=== PATIENT | female | born 1965 | race Caucasian/White ===

== ENCOUNTER 2018-10-05 17:42 | Emergency (ER) | payer BC ==
--- OUTSIDE RECORDS SUMMARY | 2018-10-05 17:45 | XMS REPORT | Continuity of Care Document ---
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 Medications Medication Details Route Status Patient Ordering Order Source Instructions Provider Date Allergies, Adverse Reactions, Alerts Substance Category Reaction Severity Reaction Status Date Comments Source type Reported Immunizations Immunization Date Given Site Status Last Updated Comments Source Results Order Results Value Reference Date Interpretation Comments Source Name Range Vital Signs Vital Sign Value Date Comments Source Encounters Location Location Encounter Encounter Reason Attending ADM DC Status Source Details Type Number For Provider Date Date Visit Procedures Procedure Code Date Perfomer Comments Source
[2018-10-05 19:13] LABS: Absolute Lymphocytes (CBC) 2.3 K/uL (0.7-4.9); Absolute Monocytes 0.5 K/uL (0.1-1.3); Absolute Neutrophil 5.1 K/uL (1.8-8.0); Basophils % 0.4 % (0-1.3); Eosinophils % 2.3 % (0-4.4); Hematocrit 43.9 % (36.0-45.0); Lymphocytes % 28.3 % (15.3-44.8); MPV 8.9 fL (7.6-11.3); Monocytes % 6.6 % (3.3-12.3); RBC Red Blood Cell Count 5.31 M/uL (3.86-4.86)
[2018-10-05 19:14] LABS: Protime INR 1.08
[2018-10-05 19:19] LABS: ALT/SGPT 37 U/L (12-78); AST/SGOT 18 U/L (15-37); Albumin 3.7 g/dL (3.4-5.0); Alkaline Phosphatase 89 U/L (45-117); BUN Blood Urea Nitrogen 13 mg/dL (7-18); Bicarbonate 31 mmol/L (21-32); Bilirubin Direct 0.1 mg/dL (0-0.2); Bilirubin Total 0.4 mg/dL (0.2-1.0); Glucose Level 96 mg/dL (74-106); Magnesium 2.4 mg/dL (1.8-2.4); NT PRO-BNP 59 pg/mL (<125); Potassium 3.7 mmol/L (3.5-5.1); Protein, Total 7.7 g/dL (6.4-8.2); Sodium Level 140 mmol/L (136-145); Troponin (Emerg Dept Use Only) < 0.02 ng/mL (0.0-0.045)
--- NOTE | 2018-10-05 19:26 | RAD REPORT ---
EXAM DESCRIPTION: RAD - Chest Single View - 10/05/2018 7:12 pm CLINICAL HISTORY: Palpitations, hypertension COMPARISON: None. TECHNIQUE: AP portable chest image was obtained 1906 hours . FINDINGS: Lungs are clear. Heart and vasculature are normal. No measurable pleural effusion and no p neumothorax. No acute bony abnormality seen. No acute aortic findings suspected. IMPRESSION: No acute cardiopulmonary process.
--- NOTE | 2018-10-05 20:32 | ER ---
Nurse's Notes [facility] Name: Chris Greer Age: 53 yrs Sex: Female : 1965 Arrival Date: 10/05/2018 Time: 17:46 Bed DIS1 Private MD: Diagnosis: Palpitations Presentation: 10/05 18:12 Presenting complaint: Patient states: Has recently started taking a new BP medication sg and it has been low, 3 days straight my BP has been extremely high, experienced Chest pain that felt like electricity shot through her chest, has been experiencing lightheaded and dizzy after she was instructed to stop taking the medication "cold turkey". Transition of care: patient was not received from another setting of care. Onset of symptoms was October 05, 2018. Risk Assessment: Do you want to hurt yourself or someone else? Patient reports no desire to harm self or others. Initial Sepsis Screen: Does the patient meet any 2 criteria? No. Patient's initial sepsis screen is negative. Does the patient have a suspected source of infection? No. Patient's initial sepsis screen is negative. Care prior to arrival: None. 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 - Social history:: Smoking status: Patient/guardian denies using tobacco. - Ebola Screening: : Patient negative for fever greater than or equal to 101.5 degrees Fahrenheit, and additional compatible Ebola Virus Disease symptoms Patient denies exposure to infectious person Patient denies travel to an Ebola-affected area in the 21 days before illness onset No symptoms or risks identified at this time. Screenin:54 Abuse screen: Denies threats or abuse. Denies injuries from another. Nutritional jl7 screening: No deficits noted. Tuberculosis screening: No symptoms or risk factors identified. Fall Risk IV access (20 points). Total White Fall Scale indicates No Risk (0-24 pts). Assessment: 18:54 General: Appears in no apparent distress. uncomfortable, Behavior is calm, cooperative, jl7 appropriate for age. Pain: Denies pain. Neuro: Level of Consciousness is awake, alert, obeys commands, Oriented to person, place, time, situation. Cardiovascular: Heart tones S1 S2 present Patient's skin is warm and dry. Respiratory: Airway is patent Respiratory effort is even, unlabored, Respiratory pattern is regular, symmetrical, Breath sounds are clear bilaterally. GI: No signs and/or symptoms were reported involving the gastrointestinal system. : No signs and/or symptoms were reported regarding the genitourinary system. EENT: No signs and/or symptoms were reported regarding the EENT system. Derm: Skin is pink, warm \\T\\ dry. Musculoskeletal: No signs and/or symptoms reported regarding the musculoskeletal system. 19:34 Reassessment: Patient appears in no apparent distress at this time. Patient and/or tl2 family updated on plan of care and expected duration. Pain level reassessed. Patient is alert, oriented x 3, equal unlabored respirations, skin warm/dry/pink. Awaiting further orders and lab results. 21:02 Reassessment: Patient appears in no apparent distress at this time. Patient and/or tl2 family updated on plan of care and expected duration. Pain level reassessed. Patient is alert, oriented x 3, equal unlabored respirations, skin warm/dry/pink. pt verbalized understanding of discharge instructions, need for follow up. Vital Signs: 18:15 BP 122 / 75; Pulse 72; Resp 17; Pulse Ox 99% on R/A; Weight 105.23 kg; Height 5 ft. 8 sg in. (172.72 cm); Pain 0/10; 20:51 BP 116 / 79; Pulse 73; Resp 18; Pulse Ox 99% on R/A; tl2 18:15 Body Mass Index 35.28 (105.23 kg, 172.72 cm) ED Course: 17:46 Patient arrived in ED. rg4 18:12 Arm band placed on. sg 18:14 Triage completed. sg 18:25 Gurmeet Ridley NP is PHCP. pm1 18:25 Flash Simmons MD is Attending Physician. pm1 18:54 Patient has correct armband on for positive identification. Placed in gown. Bed in low jl7 position. Call light in reach. Side rails up X 1. night time nanny on. Pulse ox on. NIBP on. Warm blanket given. 18:54 Initial lab(s) drawn, by me, sent to lab. Inserted saline lock: 22 gauge in left jl7 antecubital area, using aseptic technique. Blood collected. 19:13 XRAY Chest (1 view) In Process Unspecified. EDMS 21:01 Lay Reagan, RN is Primary Nurse. tl2 21:02 No provider procedures requiring assistance completed. IV discontinued, intact, tl2 bleeding controlled, No redness/swelling at site. Pressure dressing applied. Administered Medications: No medications were administered Outcome: 20:31 Discharge ordered by MD. pm1 21:02 Discharged to home ambulatory, with family. tl2 21:02 Condition: stable 21:02 Discharge instructions given to patient, Instructed on discharge instructions, follow up and referral plans. Demonstrated understanding of instructions, follow-up care. 21:04 Patient left the ED. tl2 Signatures: Dispatcher [employer] EDVA Shawn Whitlock RN RN sg Gurmeet Ridley, FUR FINISHER TAILOR FUR FINISHER TAILOR pm1 Lay Reagan RN RN tl2 Blanca Zarate rg4 Marin Harmon RN RN jl7
--- NOTE | 2018-10-05 20:32 | EDPHYS ---
Physician Documentation [facility] Name: Chris Greer Age: 53 yrs Sex: Female : 1965 Arrival Date: 10/05/2018 Time: 17:46 Bed DIS1 Private MD: ED Physician Flash Simmons HPI: 10/05 19:00 This 53 yrs old Female presents to ER via Ambulatory with complaints of pm1 Palpitations and chest pain. 19:00 The patient presents with a history of heart racing. Context: The symptoms occur at pm1 rest. Onset: The symptoms/episode began/occurred today. Duration: The patient or guardian reports a single episode, that is now resolved. Modifying factors: The symptoms are aggravated by nothing. The symptoms are alleviated by nothing. Associated signs and symptoms: Pertinent positives: one second electric-like chest pain across left breast to right breast, Pertinent negatives: cough, fever, nausea, SOB, syncope, near-syncope, vomiting. Severity of symptoms: in the emergency department the symptoms have resolved. The patient has not experienced similar symptoms in the past. 19:00 Stopped taking blood pressure medication for the past three days because it was making pm1 her blood pressure too low. 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 - Social history:: Smoking status: Patient/guardian denies using tobacco. - Ebola Screening: : Patient negative for fever greater than or equal to 101.5 degrees Fahrenheit, and additional compatible Ebola Virus Disease symptoms Patient denies exposure to infectious person Patient denies travel to an Ebola-affected area in the 21 days before illness onset No symptoms or risks identified at this time. ROS: 19:20 Constitutional: Negative for fever, chills, and weight loss, Eyes: Negative for injury, pm1 pain, redness, and discharge, ENT: Negative for injury, pain, and discharge, Neck: Negative for injury, pain, and swelling. 19:20 Respiratory: Negative for shortness of breath, cough, wheezing, and pleuritic chest pain, Abdomen/GI: Negative for abdominal pain, nausea, vomiting, diarrhea, and constipation, Back: Negative for injury and pain, : Negative for injury, bleeding, discharge, and swelling, MS/Extremity: Negative for injury and deformity, Skin: Negative for injury, rash, and discoloration, Neuro: Negative for headache, weakness, numbness, tingling, and seizure. 19:20 Cardiovascular: Positive for chest pain, palpitations, Negative for edema, orthopnea. Exam: 19:20 Constitutional: This is a well developed, well nourished patient who is awake, alert, pm1 and in no acute distress. Head/Face: Normocephalic, atraumatic. Eyes: Pupils equal round and reactive to light, extra-ocular motions intact. Lids and lashes normal. Conjunctiva and sclera are non-icteric and not injected. Cornea within normal limits. Periorbital areas with no swelling, redness, or edema. ENT: Nares patent. No nasal discharge, no septal abnormalities noted. Tympanic membranes are normal and external auditory canals are clear. Oropharynx with no redness, swelling, or masses, exudates, or evidence of obstruction, uvula midline. Mucous membranes moist. Neck: Trachea midline, no thyromegaly or masses palpated, and no cervical lymphadenopathy. Supple, full range of motion without nuchal rigidity, or vertebral point tenderness. No Meningismus. Chest/axilla: Normal chest wall appearance and motion. Nontender with no deformity. No lesions are appreciated. Cardiovascular: Regular rate and rhythm with a normal S1 and S2. No gallops, murmurs, or rubs. Normal PMI, no JVD. No pulse deficits. Respiratory: Lungs have equal breath sounds bilaterally, clear to auscultation and percussion. No rales, rhonchi or wheezes noted. No increased work of breathing, no retractions or nasal flaring. Abdomen/GI: Soft, non-tender, with normal bowel sounds. No distension or tympany. No guarding or rebound. No evidence of tenderness throughout. Back: No spinal tenderness. No costovertebral tenderness. Full range of motion. Skin: Warm, dry with normal turgor. Normal color with no rashes, no lesions, and no evidence of cellulitis. MS/ Extremity: Pulses equal, no cyanosis. Neurovascular intact. Full, normal range of motion. 19:20 Neuro: Orientation: is normal, Motor: is normal, Sensation: is normal, no obvious gross deficits, Gait: is steady, at a normal pace, without difficulty. Vital Signs: 18:15 BP 122 / 75; Pulse 72; Resp 17; Pulse Ox 99% on R/A; Weight 105.23 kg; Height 5 ft. 8 sg in. (172.72 cm); Pain 0/10; 20:51 BP 116 / 79; Pulse 73; Resp 18; Pulse Ox 99% on R/A; tl2 18:15 Body Mass Index 35.28 (105.23 kg, 172.72 cm) sg MDM: 18:25 Patient medically screened. pm1 20:31 Data reviewed: vital signs. Data interpreted: Pulse oximetry: on room air is 99 %. pm1 Interpretation: normal. Counseling: I had a detailed discussion with the patient and/or guardian regarding: the historical points, exam findings, and any diagnostic results supporting the discharge/admit diagnosis, lab results, radiology results, the need for outpatient follow up, to return to the emergency department if symptoms worsen or persist or if there are any questions or concerns that arise at home. 10/05 18:37 Order name: Basic Metabolic Panel; Complete Time: 19:59 pm1 10/05 18:37 Order name: CBC with Diff; Complete Time: 19:59 pm10/05 18:37 Order name: LFT's; Complete Time: 19:59 pm10/05 18:37 Order name: Magnesium; Complete Time: 19:59 pm10/05 18:37 Order name: NT PRO-BNP; Complete Time: 19:59 pm10/05 18:37 Order name: PT-INR; Complete Time: 19:59 pm10/05 18:37 Order name: Troponin (emerg Dept Use Only); Complete Time: 19:59 pm10/05 18:37 Order name: XRAY Chest (1 view); Complete Time: 19:59 pm10/05 18:37 Order name: EKG; Complete Time: 18:38 pm10/05 18:37 Order name: Cardiac monitoring; Complete Time: 19:28 pm10/05 18:37 Order name: EKG - Nurse/Tech; Complete Time: 19:28 pm10/05 18:37 Order name: IV Saline Lock; Complete Time: 18:54 pm1 10/05 18:37 Order name: Labs collected and sent; Complete Time: 18:54 pm1 10/05 19:33 Order name: Urine Dipstick--Ancillary (enter results); Complete Time: 21:01 gm 10/05 18:37 Order name: O2 Per Protocol; Complete Time: 18:54 pm1 10/05 18:37 Order name: O2 Sat Monitoring; Complete Time: 18:54 pm1 10/05 18:37 Order name: Urine Dipstick-Ancillary (obtain specimen); Complete Time: 19:27 pm1 10/05 18:37 Order name: Urine Test (obtain specimen); Complete Time: 19:27 pm1 Administered Medications: No medications were administered Disposition: 10/06 07:12 Co-signature as Attending Physician, Flash Simmons MD I agree with the assessment and mikaela plan of care. Disposition: 10/05/18 20:31 Discharged to Home. Impression: Palpitations. - Condition is Stable. - Discharge Instructions: Palpitations. - Medication Reconciliation Form, Thank You Letter form. - Follow up: Emergency Department; When: As needed; Reason: Worsening of condition. Follow up: Private Physician; When: 2 - 3 days; Reason: Recheck today's complaints, Continuance of care, Re-evaluation by your physician. - Problem is new. - Symptoms have improved. Signatures: Dispatcher [employer] EDMS Shawn Whitlock, Flash Swanson RN, MD MD cha Marinas, Patrick, UNIVERSAL GRINDER TOOL UNIVERSAL GRINDER TOOL pm1 Lay Reagan RN RN tl2 Corrections: (The following items were deleted from the chart) 10/05 21:04 20:31 10/05/2018 20:31 Discharged to Home. Impression: Palpitations. Condition is tl2 Stable. Forms are Medication Reconciliation Form, Thank You Letter, Antibiotic Education, Prescription Opioid Use. Follow up: Emergency Department; When: As needed; Reason: Worsening of condition. Follow up: Private Physician; When: 2 - 3 days; Reason: Recheck today's complaints, Continuance of care, Re-evaluation by your physician. Problem is new. Symptoms have improved. pm1
[2018-10-05 20:58] LABS: Urine Blood 2+ (NEG); Urine Glucose NEGATIVE (NEG); Urine Protein NEGATIVE (NEG); Urine pH 5.5 (5.0-7.0)
--- NOTE | 2018-10-06 09:39 | EKG ---
Test Date: 2018-10-05 Test Time: 19:06:51 Waiter/Waitress Second Class: TREMAYNE MEASUREMENT RESULTS: Intervals: Rate: 74 VT: 144 QRSD: 80 QT: 386 QTc: 428 Dragoon: P: 74 VT: 144 QRS: 47 T: 31 INTERPRETIVE STATEMENTS: Normal sinus rhythm Cannot rule out Anterior infarct, age undetermined Abnormal ECG No previous ECG available for comparison Electronically Signed On 10-06-18 09:38:22 ELECTROLYSIS ENGINEER by Miguel Umaña
== END 2018-10-05 21:04 | disposition home or self-care (01) ==
LOC: ER 17:42
DX: R00.2 Palpitations (principal); R94.31 Abnormal electrocardiogram [ECG] [EKG]
CPT/HCPCS: 36415; 71045; 80048; 80076; 81003; 83735; 83880; 84484; 85025; 85610; 93005; 99284

== ENCOUNTER 2019-02-18 23:51 | Emergency (ER) | payer BC ==
[2019-02-19 01:09] LABS: Absolute Lymphocytes (CBC) 2.1 K/uL (0.7-4.9); Absolute Monocytes 0.5 K/uL (0.1-1.3); Absolute Neutrophil 4.2 K/uL (1.8-8.0); Basophils % 0.4 % (0-1.3); Hematocrit 41.9 % (36.0-45.0); Lymphocytes % 30.9 % (15.3-44.8); MPV 8.2 fL (7.6-11.3); Monocytes % 6.7 % (3.3-12.3); RBC Red Blood Cell Count 4.85 M/uL (3.86-4.86)
[2019-02-19 01:27] LABS: ALT/SGPT 20 U/L (12-78); AST/SGOT 13 U/L (15-37); Albumin 3.2 g/dL (3.4-5.0); Alkaline Phosphatase 80 U/L (45-117); BUN Blood Urea Nitrogen 7 mg/dL (7-18); Bicarbonate 31 mmol/L (21-32); Bilirubin Direct 0.1 mg/dL (0-0.2); Bilirubin Total 0.4 mg/dL (0.2-1.0); Glucose Level 103 mg/dL (74-106); Lipase 141 U/L (73-393); Potassium 3.6 mmol/L (3.5-5.1); Protein, Total 6.7 g/dL (6.4-8.2); Sodium Level 144 mmol/L (136-145)
[2019-02-19] MEDS ORDERED: ONDANSETRON 4 MG/2 ML VIAL ONE (02:25)
[2019-02-19] MEDS ORDERED: MORPHINE 4 MG/ML SYR ONE (02:25)
[2019-02-19 02:27] LABS: Urine Blood NEGATIVE (NEG); Urine Glucose NEGATIVE (NEG); Urine Protein NEGATIVE (NEG); Urine Specific Gravity 1.015 (1.005-1.030); Urine pH 7.5 (5.0-7.0)
[2019-02-19] MEDS ORDERED: FENTANYL CITR 100 MCG/2 ML ONE (02:31)
[2019-02-19 02:34] LABS: Urine Bacteria <20 /HPF (<20); Urine Culture Reflex Order NOT NEEDED; Urine RBC NONE SEEN /HPF (NONE SEEN)
--- NOTE | 2019-02-19 04:49 | ER ---
Nurse's Notes [facility] Name: Chris Greer Age: 53 yrs Sex: Female : 1965 Arrival Date: 02/18/2019 Time: 23:54 Bed 6 Private MD: Diagnosis: Lower abdominal pain, unspecified Presentation: 02/18 23:55 Presenting complaint: Patient states: I am having upper abd pain, swelling, nausea. Pt la1 reports vomiting at home. Transition of care: patient was not received from another setting of care. Onset of symptoms was February 18, 2019. Risk Assessment: Do you want to hurt yourself or someone else? Patient reports no desire to harm self or others. Initial Sepsis Screen: Does the patient meet any 2 criteria? No. Patient's initial sepsis screen is negative. Does the patient have a suspected source of infection? No. Patient's initial sepsis screen is negative. Care prior to arrival: None. 23:55 Method Of Arrival: Ambulatory la1 23:55 Acuity: ASH 3 la1 Historical: - Allergies: 23:57 Aspirin; la1 23:57 PENICILLINS; la1 23:57 Sulfa (Sulfonamide Antibiotics); la1 23:57 Codeine; la1 23:57 Motrin; la1 - PMHx: 23:57 Hypertension; la1 - PSHx: 23:57 ; Cholecystectomy; irvin en y; la1 - Immunization history:: Adult Immunizations up to date. - Social history:: Smoking status: Patient/guardian denies using tobacco. - Ebola Screening: : No symptoms or risks identified at this time. Screenin/27 00:04 Abuse screen: Denies threats or abuse. Nutritional screening: No deficits noted. jd3 Tuberculosis screening: No symptoms or risk factors identified. Fall Risk Ambulatory Aid- None/Bed Rest/Nurse Assist (0 pts). Gait- Normal/Bed Rest/Wheelchair (0 pts) Mental Status- Oriented to own ability (0 pts). Total White Fall Scale indicates No Risk (0-24 pts). Assessment: 00:05 General: Appears in no apparent distress. uncomfortable, Behavior is calm, cooperative, jd3 appropriate for age. Pain: Complains of pain in abdomen Quality of pain is described as aching, pressure, tender. Neuro: Level of Consciousness is awake, alert, obeys commands, Oriented to person, place, time, situation, Appropriate for age. Cardiovascular: Capillary refill < 3 seconds Patient's skin is warm and dry. Respiratory: Airway is patent Respiratory effort is even, unlabored, Respiratory pattern is regular, symmetrical. GI: Abdomen is round Bowel sounds present X 4 quads. Abd is soft Abdomen is tender to palpation X 4 quads. Reports bloating, intolerance of fluids, nausea, vomiting. : EENT: No signs and/or symptoms were reported regarding the EENT system. Derm: Skin is intact, Skin is dry, Skin is normal, Skin temperature is warm. Musculoskeletal: Circulation, motion, and sensation intact. Range of motion: intact in all extremities. 01:02 Reassessment: Patient appears in no apparent distress at this time. No changes from jd3 previously documented assessment. Patient and/or family updated on plan of care and expected duration. Pain level reassessed. Patient is alert, oriented x 3, equal unlabored respirations, skin warm/dry/pink. 01:57 Reassessment: Patient appears in no apparent distress at this time. Patient and/or jd3 family updated on plan of care and expected duration. Pain level reassessed. Patient is alert, oriented x 3, equal unlabored respirations, skin warm/dry/pink. CT notified of pt finishing PO contrast. 04:58 Reassessment: Patient and/or family updated on plan of care and expected duration. Pain ea level reassessed. Patient is alert, oriented x 3, equal unlabored respirations, skin warm/dry/pink. 05:30 Reassessment: Patient and/or family updated on plan of care and expected duration. Pain ea level reassessed. Patient is alert, oriented x 3, equal unlabored respirations, skin warm/dry/pink. Discharge instruction given to patient, verbalized the understanding of instruction. Pt left ambulatory with family, tolerating well. Vital Signs: 02/18 23:57 BP 128 / 76; Pulse 68; Resp 16; Temp 97.0; Pulse Ox 98% on R/A; Weight 92.08 kg; Height la1 5 ft. 8 in. (172.72 cm); 02/19 01:02 BP 125 / 71; Pulse 56; Resp 17 S; Pulse Ox 98% on R/A; jd3 02:24 BP 127 / 50; Pulse 57; Resp 16 S; Pulse Ox 97% on R/A; jd3 03:50 BP 107 / 53; Pulse 54; Resp 16; Pulse Ox 97% on R/A; mt 05:15 BP 120 / 70; Pulse 55; Resp 18; Pulse Ox 98% on R/A; ea 02/18 23:57 Body Mass Index 30.87 (92.08 kg, 172.72 cm) la1 ED Course: 02/18 23:54 Patient arrived in ED. am2 23:56 Triage completed. la1 23:57 Arm band placed on left wrist. la1 23:59 Mike Banda, RN is Primary Nurse. jd3 02/19 00:04 Patient has correct armband on for positive identification. Bed in low position. Call jd3 light in reach. Side rails up X2. Adult w/ patient. 00:05 Hari Webster MD is Attending Physician. gs 00:58 Inserted saline lock: 20 gauge in left antecubital area, using aseptic technique. Blood jd3 collected. 04:08 CT Abd/Pelvis - W/Contrast In Process Unspecified. EDMS 05:30 IV discontinued, intact, bleeding controlled, No redness/swelling at site. Pressure ea dressing applied. 06:31 No provider procedures requiring assistance completed. ea Administered Medications: 02:12 CANCELLED (Patient Refused): morphine 4 mg IVP once gs 02:20 Drug: Zofran 4 mg Route: IVP; Site: left antecubital; ea 02:21 Drug: fentaNYL (PF) 25 mcg Route: IVP; Site: left antecubital; ea Outcome: 04:48 Discharge ordered by . gs 05:30 Discharged to home ambulatory, with family. ea 05:30 Condition: stable 05:30 Discharge instructions given to patient, Instructed on discharge instructions, follow up and referral plans. Demonstrated understanding of instructions, follow-up care. 05:32 Patient left the ED. ea Signatures: Dispatcher [employer] EDMS Bobby Méndez, RN BRICE la1 Anna Argueta Moriah mt Antunez, Elena, RN RN ea Starr, Gregory, MD MD gs Davies, Jonathon, RN RN jd3
--- NOTE | 2019-02-19 04:49 | EDPHYS ---
Physician Documentation [facility] Name: Chris Greer Age: 53 yrs Sex: Female : 1965 Arrival Date: 02/18/2019 Time: 23:54 Bed 6 Private MD: ED Physician Hari Webster HPI: 02/19 04:35 This 53 yrs old Female presents to ER via Ambulatory with complaints of gs Abdominal Pain, Nausea/Vomiting. 04:35 The patient presents to the emergency department with nausea, abdominal pain. gs 04:45 Onset: The symptoms/episode began/occurred gradually, 1 month(s) ago, and became worse gs and became persistent. Possible causes: unknown. The symptoms are aggravated by food . Associated signs and symptoms: Pertinent positives: nausea. Severity of symptoms: At their worst the symptoms were moderate in the emergency department the symptoms are unchanged. The patient has experienced similar episodes in the past, multiple times. 05:21 The patient has been recently seen by a physician: 3 day(s) ago, with similar gs presenting complaints. Historical: - Allergies: 02/18 23:57 Aspirin; la1 23:57 PENICILLINS; la1 23:57 Sulfa (Sulfonamide Antibiotics); la1 23:57 Codeine; la1 23:57 Motrin; la1 - PMHx: 23:57 Hypertension; la1 - PSHx: 23:57 ; Cholecystectomy; irvin en y; la1 - Immunization history:: Adult Immunizations up to date. - Social history:: Smoking status: Patient/guardian denies using tobacco. - Ebola Screening: : No symptoms or risks identified at this time. ROS: 02/19 04:45 All other systems are negative. gs Exam: 04:45 Head/Face: Normocephalic, atraumatic. Eyes: Pupils equal round and reactive to light, gs extra-ocular motions intact. Lids and lashes normal. Conjunctiva and sclera are non-icteric and not injected. Cornea within normal limits. Periorbital areas with no swelling, redness, or edema. ENT: Nares patent. No nasal discharge, no septal abnormalities noted. Tympanic membranes are normal and external auditory canals are clear. Oropharynx with no redness, swelling, or masses, exudates, or evidence of obstruction, uvula midline. Mucous membranes moist. Neck: Trachea midline, no thyromegaly or masses palpated, and no cervical lymphadenopathy. Supple, full range of motion without nuchal rigidity, or vertebral point tenderness. No Meningismus. Chest/axilla: Normal chest wall appearance and motion. Nontender with no deformity. No lesions are appreciated. Cardiovascular: Regular rate and rhythm with a normal S1 and S2. No gallops, murmurs, or rubs. Normal PMI, no JVD. No pulse deficits. Respiratory: Lungs have equal breath sounds bilaterally, clear to auscultation and percussion. No rales, rhonchi or wheezes noted. No increased work of breathing, no retractions or nasal flaring. Back: No spinal tenderness. No costovertebral tenderness. Full range of motion. Skin: Warm, dry with normal turgor. Normal color with no rashes, no lesions, and no evidence of cellulitis. MS/ Extremity: Pulses equal, no cyanosis. Neurovascular intact. Full, normal range of motion. Neuro: Awake and alert, GCS 15, oriented to person, place, time, and situation. Cranial nerves II-XII grossly intact. Motor strength 5/5 in all extremities. Sensory grossly intact. Cerebellar exam normal. Normal gait. 04:45 Constitutional: The patient appears alert, awake. 04:45 Abdomen/GI: Inspection: abdomen appears normal, Palpation: moderate abdominal tenderness, in the right lower quadrant and left lower quadrant, rebound tenderness, is not appreciated. Vital Signs: 02/18 23:57 BP 128 / 76; Pulse 68; Resp 16; Temp 97.0; Pulse Ox 98% on R/A; Weight 92.08 kg; Height la1 5 ft. 8 in. (172.72 cm); 02/19 01:02 BP 125 / 71; Pulse 56; Resp 17 S; Pulse Ox 98% on R/A; jd3 02:24 BP 127 / 50; Pulse 57; Resp 16 S; Pulse Ox 97% on R/A; jd3 03:50 BP 107 / 53; Pulse 54; Resp 16; Pulse Ox 97% on R/A; mt 05:15 BP 120 / 70; Pulse 55; Resp 18; Pulse Ox 98% on R/A; ea 02/18 23:57 Body Mass Index 30.87 (92.08 kg, 172.72 cm) la1 MDM: 00:30 Patient medically screened. gs 04:45 Differential diagnosis: Nonspecific abd pain, gastritis, pancreatitis, bowel gs obstruction. Data reviewed: vital signs, nurses notes, lab test result(s), radiologic studies. Counseling: I had a detailed discussion with the patient and/or guardian regarding: the historical points, exam findings, and any diagnostic results supporting the discharge/admit diagnosis, the need for outpatient follow up. Response to treatment: the patient's symptoms have markedly improved after treatment, and as a result, I will discharge patient. ED course: sp gastric bypass will need to follow up with surgeon. 02/19 00:43 Order name: Basic Metabolic Panel; Complete Time: 02:12 02/19 00:43 Order name: CBC with Diff; Complete Time: 02:12 02/19 00:43 Order name: Hepatic Function; Complete Time: 02:12 02/19 00:43 Order name: Lipase; Complete Time: 02:12 02/19 00:43 Order name: Urine Microscopic Only; Complete Time: 02:36 02/19 02:24 Order name: Urine Dipstick--Ancillary (enter results); Complete Time: 02:36 ag4 02/19 00:43 Order name: IV Saline Lock; Complete Time: 01:00 02/19 00:43 Order name: Labs collected and sent; Complete Time: 01:00 02/19 00:43 Order name: Urine Dipstick-Ancillary (obtain specimen); Complete Time: 02:21 02/19 00:43 Order name: CT Abd/Pelvis - W/Contrast gs Administered Medications: 02:12 CANCELLED (Patient Refused): morphine 4 mg IVP once gs 02:20 Drug: Zofran 4 mg Route: IVP; Site: left antecubital; ea 02:21 Drug: fentaNYL (PF) 25 mcg Route: IVP; Site: left antecubital; ea Disposition: 02/19/19 04:48 Discharged to Home. Impression: Lower abdominal pain, unspecified. - Condition is Stable. - Discharge Instructions: Abdominal Pain, Adult. - Medication Reconciliation Form, Thank You Letter, Antibiotic Education, Prescription Opioid Use form. - Follow up: Private Physician; When: 2 - 3 days; Reason: Re-evaluation by your physician. Signatures: Dispatcher [employer] EDBobby Sims RN RN la1 Yulisa Aparicio RN RN Hari Flynn MD MD gs Corrections: (The following items were deleted from the chart) 02:12 02:11 morphine 4 mg IVP once ordered. [facility] 05:32 04:48 02/19/2019 04:48 Discharged to Home. Impression: Lower abdominal pain, ea unspecified. Condition is Stable. Forms are Medication Reconciliation Form, Thank You Letter, Antibiotic Education, Prescription Opioid Use. Follow up: Private Physician; When: 2 - 3 days; Reason: Re-evaluation by your physician.
--- NOTE | 2019-02-20 10:25 | RAD REPORT ---
EXAM DESCRIPTION: CT - Abdomen Pelvis W Contrast - 02/19/2019 4:08 am CLINICAL HISTORY: The patient is 53 years old and is Female; ABD PAIN TECHNIQUE: Axial computed tomography images of the abdomen and pelvis with intravenous contrast. S agittal and coronal reformatted images were created and reviewed. This CT exam was performed using one or more of the following dose reduction techniques: automated exposure control, adjustment of t he mA and/or kV according to patient size, and/or use of iterative reconstruction technique. COMPARISON: No relevant prior studies available. FINDINGS: LUNG BASES: Minimal dependent densities in the lung bases are present. HEART: A small pericardial effusion is present. ABDOMEN: LIVER: The liver is enlarged. GALLBLADDER AND BILE DUCTS: Surgical clips are present in the right upper quadrant, consistent w ith previous cholecystectomy. PANCREAS: No ductal dilation. No mass. SPLEEN: The spleen is prominent. ADRENALS: Hyperplasia of the left adrenal gland is noted. KIDNEYS AND URETERS: Unremarkable. No solid mass. No hydronephrosis. STOMACH AND BOWEL: Postsurgical change of the stomach is present. The small bowel is relatively normal in caliber. Postsurgical change of the small bowel within the mid abdomen is noted. Contrast i s present throughout the distal small bowel and colon to the level of the rectum. A moderate amount s tool is present. No mucosal thickening or evidence of obstruction PELVIS: APPENDIX: No findings to suggest acute appendicitis. BLADDER: The bladder is moderately distended. REPRODUCTIVE: Unremarkable as visualized. ABDOMEN and PELVIS: INTRAPERITONEAL SPACE: Trace free fluid is present within the pelvis which is likely physiologic . No free air. BONES/JOINTS: There are degenerative changes of the bones. SOFT TISSUES: Evidence of a prior midline abdominal incision is noted. VASCULATURE: Unremarkable. No abdominal aortic aneurysm. LYMPH NODES: Unremarkable. No enlarged lymph nodes. IMPRESSION: No acute findings on this contrasted CT of the abdomen and pelvis to explain the patient 's symptoms. Electronically signed by: Carmita Agudelo MD 02/19/2019 4:21 AM CDT Due to temporary technical issues with the PACS/Fluency reporting system, reports are being signed by the in house radiologist as a courtesy to ensure prompt reporting. The interpreting radiologist is f ully responsible for the content of the report.
== END 2019-02-19 05:32 | disposition home or self-care (01) ==
LOC: ER 23:51
DX: R10.30 Lower abdominal pain, unspecified (principal); I10 Essential (primary) hypertension; Z88.0 Allergy status to penicillin; Z88.2 Allergy status to sulfonamides; Z88.5 Allergy status to narcotic agent; Z88.6 Allergy status to analgesic agent
CPT/HCPCS: 36415; 74177; 80048; 80076; 81003; 81015; 83690; 85025; 96374; 96375; 99284; J2405; J3010; Q9967

== ENCOUNTER 2023-03-31 19:47 | Emergency (ER) | payer BC ==
--- NOTE | 2023-03-31 21:14 | RAD REPORT ---
EXAM DESCRIPTION: US - Extremity Venous Uni Ltd - 03/31/2023 9:03 pm CLINICAL HISTORY: Pain COMPARISON: None. TECHNIQUE: Real-time sonographic evaluation of the left lower extremity deep venous system was perfo rmed. FINDINGS: Normal compressibility, flow augmentation, phasic flow and spontaneous flow is identified in the left lower extremity deep venous system. Poor flow signal along the left popliteal vein, could be artifactual or related to slow flow. No intraluminal filling defects seen. IMPRESSION: No evidence DVT in the left lower extremity. Poor flow signal along the left popliteal vein, could be artifactual or related to slow flow.
--- NOTE | 2023-03-31 21:34 | RAD REPORT ---
EXAM DESCRIPTION: Natt Single View03/31/2023 8:47 pm CLINICAL HISTORY: CHEST PAIN COMPARISON: Chest Single View dated 10/05/2018 TECHNIQUE: Portable AP view of the chest. FINDINGS: The lungs are clear. No pneumothorax or effusion. The cardiomediastinal contours are unre markable. IMPRESSION: No acute cardiopulmonary process.
[2023-03-31 22:14] LABS: Absolute Lymphocytes (CBC) 1.4 K/uL (0.7-4.9); Lymphocytes % 21.8 % (15.3-44.8); MCV 87.3 fL (80-100); MPV 7.7 fL (7.6-11.3); RBC Red Blood Cell Count 4.35 M/uL (3.86-4.86)
[2023-03-31 22:16] LABS: Protime INR 1.16
[2023-03-31] MEDS ORDERED: TRAMADOL HCL 50 MG TAB ONE ×2 (22:29→23:49)
[2023-03-31 22:35] LABS: Albumin 2.9 g/dL (3.4-5.0); Bilirubin Direct 0.2 mg/dL (0-0.2); Bilirubin Indirect, Calculated 0.3 mg/dL (0.2-0.8); Bilirubin Total 0.5 mg/dL (0.2-1.0); Potassium 3.2 mEq/L (3.5-5.1); Protein, Total 6.4 g/dL (6.4-8.2)
[2023-03-31] MEDS ORDERED: KETOROLAC 30 MG/ML INJ ONE (23:49)
--- NOTE | 2023-04-01 00:05 | ER ---
Nurse's Notes [facility] Name: Chris Greer Age: 57 yrs Sex: Female : 1965 Arrival Date: 03/31/2023 Time: 19:47 Bed 4 Private MD: Diagnosis: Compressive injury left lower extremity, acute left knee sprain, left foot swelling, left lower extremity acute pain. Posttraumatic left lower extremity pain Presentation: 03/31 19:54 Chief complaint: Patient states: i think i might have a blood clot in my left leg. a lg3 month ago my dog wrapped her chain around my leg and left a big bruise that is not going away and this past weekend my foot and calf started swelling. now my entire left left is painful and i feel like im having palpitations. Coronavirus screen: Client denies travel out of the [place] in the last 14 days. At this time, the client does not indicate any symptoms associated with coronavirus-19. Ebola Screen: No symptoms or risks identified at this time. Initial Sepsis Screen: Does the patient meet any 2 criteria? No. Patient's initial sepsis screen is negative. Does the patient have a suspected source of infection? No. Patient's initial sepsis screen is negative. Risk Assessment: Do you want to hurt yourself or someone else? Patient reports no desire to harm self or others. Onset of symptoms is unknown. 19:54 Method Of Arrival: Wheelchair lg3 19:54 Acuity: ASH 3 lg3 Triage Assessment: 19:57 General: Appears in no apparent distress. comfortable, Behavior is calm, cooperative. lg3 Pain: Complains of pain in left leg. EENT: No deficits noted. No signs and/or symptoms were reported regarding the EENT system. Neuro: No deficits noted. [place] Agitation-Sedation Scale (RASS): 0 - Alert and Calm Level of Consciousness is awake, alert, obeys commands, Oriented to person, place, time, situation. Cardiovascular: No deficits noted. Reports palpitations, Denies chest pain, shortness of breath, Capillary refill < 3 seconds Clubbing of nail beds is absent JVD is absent Patient's skin is warm and dry. Respiratory: No deficits noted. Airway is patent Respiratory effort is even, unlabored, Respiratory pattern is regular, symmetrical. GI: No deficits noted. No signs and/or symptoms were reported involving the gastrointestinal system. Abdomen is round non-distended, obese. : No deficits noted. No signs and/or symptoms were reported regarding the genitourinary system. Derm: No deficits noted. Skin is intact, is healthy with good turgor, Skin is dry, Skin is normal, Skin temperature is warm. Musculoskeletal: Reports pain in left leg. Historical: - Allergies: 19:57 Aspirin; lg3 19:57 Codeine; lg3 19:57 Motrin; lg3 19:57 PENICILLINS; lg3 19:57 Sulfa (Sulfonamide Antibiotics); lg3 19:57 Morphine; lg3 - Home Meds: 19:57 pantoprazole oral [Active]; Lorazepam Oral [Active]; propranolol Oral [Active]; lg3 Fluconazole Oral [Active]; - PMHx: 19:57 Hypertension; Depressive disorder; gerd; acid reflux; lg3 - PSHx: 19:57 intestional stent; gastric bypass; section; Cholecystectomy; Appendectomy; lg3 - Immunization history:: Adult Immunizations up to date, Client reports receiving the 2nd dose of the Covid vaccine, Flu vaccine is up to date. - Social history:: Smoking status: Patient denies any tobacco usage or history of. Patient/guardian denies using alcohol, street drugs. - Family history:: not pertinent. Screenin:13 [facility] ED Fall Risk Assessment (Adult) History of falling in the last 3 months, cm10 including since admission No falls in past 3 months (0 pts) Confusion or Disorientation No (0 pts) Intoxicated or Sedated No (0 pts) Impaired Gait Yes (1 pt) Mobility Assist Device Used Yes (1 pt) Altered Elimination No (0 pt) Score/Fall Risk Level 0 - 2 = Low Risk Oriented to surroundings, Maintained a safe environment. Abuse screen: Denies threats or abuse. Denies injuries from another. Nutritional screening: No deficits noted. Tuberculosis screening: No symptoms or risk factors identified. Assessment: 22:12 Reassessment: No changes from previously documented assessment. Patient and/or family cm10 updated on plan of care and expected duration. Pain level reassessed. Patient is alert, oriented x 3, equal unlabored respirations, skin warm/dry/pink. General: Appears in no apparent distress. comfortable, Behavior is calm, cooperative. Neuro: No deficits noted. Level of Consciousness is awake, alert, Oriented to person, place, time, situation. Cardiovascular: No deficits noted. Capillary refill < 3 seconds. Respiratory: No deficits noted. Airway is patent Respiratory effort is even, unlabored, Respiratory pattern is regular, symmetrical. 23:52 Reassessment: Patient and/or family updated on plan of care and expected duration. Pain cm10 level reassessed. Patient is alert, oriented x 3, equal unlabored respirations, skin warm/dry/pink. Patient states symptoms have not improved. Vital Signs: 19:54 BP 119 / 85; Pulse 78; Resp 17 S; Temp 98.1(O); Pulse Ox 100% on R/A; Weight 104.33 kg lg3 (R); Height 5 ft. 8 in. (R); Pain 8/10; 22:30 BP 133 / 76 LA Supine (auto/lg); Pulse 63 MON; Resp 16 S; Pulse Ox 100% on R/A; cm10 23:51 BP 148 / 78; Pulse 59; Resp 16; Pulse Ox 95% on R/A; cm10 04/01 00:14 BP 142 / 89; Pulse 63; Resp 18 S; Pulse Ox 94% on R/A; as6 03/31 19:54 Body Mass Index 34.97 (104.33 kg, 172.72 cm) lg3 07 19:54 Pain Scale: Adult lg3 ED Course: 03/31 19:51 Patient arrived in ED. ja2 19:57 Triage completed. lg3 19:57 Arm band placed on right wrist. lg3 20:08 Dale Yost MD is Attending Physician. sp4 20:49 XRAY Chest (1 view) In Process Unspecified. EDMS 21:04 Extremity Venous Uni Ltd US In Process Unspecified. EDMS 21:12 Trent Hidalgo, RN is Primary Nurse. as6 22:12 Inserted saline lock: 20 gauge in right antecubital area, using aseptic technique. cm10 22:13 Patient has correct armband on for positive identification. Bed in low position. Call cm10 light in reach. Side rails up X 1. 22:51 Knee Left 3 View XRAY In Process Unspecified. EDMS 23:50 IV discontinued, intact, bleeding controlled, No redness/swelling at site. Pressure cm10 dressing applied. 04/01 00:04 Shawn Thurman MD is Referral Physician. sp4 00:23 No provider procedures requiring assistance completed. as6 Administered Medications: 03/31 22:25 Drug: traMADol PO 100 mg Route: PO; cm10 23:52 Follow up: Response: No adverse reaction; Pain is unchanged, physician notified cm10 22:26 Not Given (medication not availablee): Ketorolac PO 10 mg PO once cm10 23:50 Drug: traMADol PO 50 mg Route: PO; cm10 04/01 00:23 Follow up: Response: No adverse reaction as6 03/31 23:50 Drug: Ketorolac IM 30 mg Route: IM; Site: right gluteus; cm10 04/01 00:23 Follow up: Response: No adverse reaction as6 03/31 23:52 Not Given (Patient Refused): Ondansetron IVP 4 mg IVP once; over 2 minutes cm10 Medication: 04/01 00:23 VIS not applicable for this client. as6 Outcome: 00:05 Discharge ordered by . sp4 00:23 Discharged to home via wheelchair. as6 00:23 Condition: stable 00:23 Discharge instructions given to patient, Instructed on discharge instructions, follow up and referral plans. medication usage, Demonstrated understanding of instructions, follow-up care, medications, Prescriptions given X 2. 00:23 Patient left the ED. as6 Signatures: Dispatcher [employer] Mariangel Menendez RN RN lg3 Scarlet Lazo Ashby, RN RN as6 Dale Yost MD MD sp4 Cookie Neeyl RN RN cm10
--- NOTE | 2023-04-01 00:05 | EDPHYS ---
Physician Documentation [facility] Name: Chris Greer Age: 57 yrs Sex: Female : 1965 Arrival Date: 03/31/2023 Time: 19:47 Bed 4 Private MD: ED Physician Dale Yost HPI: 03/31 20:08 This 57 yrs old Female presents to ER via Wheelchair with complaints of sp4 Possible Blood Clot in Left Leg. 20:35 Very pleasant 57-year-old female with past medical history of hypertension, depression, sp4 GERD, and multiple medication allergies, presents with a cute onset of left lower extremity pain and foot swelling. Patient states that 1 month ago her dog created a chain wrapped around around the leg and caused contusion and hematoma under the skin of the left lower extremity. This has improved but 4 days ago patient developed left foot pain and swelling and pain with ambulation and also some palpitations as well. Patient has she has difficult time stepping on the foot. . Historical: - Allergies: 19:57 Aspirin; lg3 19:57 Codeine; lg3 19:57 Motrin; lg3 19:57 PENICILLINS; lg3 19:57 Sulfa (Sulfonamide Antibiotics); lg3 19:57 Morphine; lg3 - Home Meds: 19:57 pantoprazole oral [Active]; Lorazepam Oral [Active]; propranolol Oral [Active]; lg3 Fluconazole Oral [Active]; - PMHx: 19:57 Hypertension; Depressive disorder; gerd; acid reflux; lg3 - PSHx: 19:57 intestional stent; gastric bypass; section; Cholecystectomy; Appendectomy; lg3 - Immunization history:: Adult Immunizations up to date, Client reports receiving the 2nd dose of the Covid vaccine, Flu vaccine is up to date. - Social history:: Smoking status: Patient denies any tobacco usage or history of. Patient/guardian denies using alcohol, street drugs. - Family history:: not pertinent. ROS: 20:35 Constitutional: Negative for fever, chills, and weight loss, Eyes: Negative for injury, sp4 pain, redness, and discharge, ENT: Negative for injury, pain, and discharge, Neck: Negative for injury, pain, and swelling, Cardiovascular: Negative for chest pain, and edema, positive for palpitations Respiratory: Negative for shortness of breath, cough, wheezing, and pleuritic chest pain, Abdomen/GI: Negative for abdominal pain, nausea, vomiting, diarrhea, and constipation, Back: Negative for injury and pain, : Negative for injury, bleeding, discharge, and swelling, MS/Extremity: Positive for left lower extremity pain, history of left lower extremity injury, positive for left foot swelling, left knee pain, associated left knee pain, and also there is left foot swelling Skin: Negative for injury, rash, and discoloration, Neuro: Negative for headache, weakness, numbness, tingling, and seizure, Psych: Negative for depression, anxiety, Allergy/Immunology: Negative for hives, rash, and allergies Endocrine: Negative for neck swelling, polydipsia, polyuria, polyphagia, and weight changes Hematologic/Lymphatic: Negative for swollen nodes, abnormal bleeding, and unusual bruising Exam: 20:35 Constitutional: This is a well developed, well nourished patient who is awake, alert, sp4 and in no acute distress. Head/Face: Normocephalic, atraumatic. Eyes: Pupils equal round and reactive to light, extra-ocular motions intact. Lids and lashes normal. Conjunctiva and sclera are not injected. Cornea within normal limits. Periorbital areas with no swelling, redness, or edema. ENT: Nares patent. No nasal discharge, no septal abnormalities noted. Tympanic membranes are normal and external auditory canals are clear. Oropharynx with no redness, swelling, or masses, exudates, or evidence of obstruction, uvula midline. Mucous membranes moist. Neck: Trachea midline, no thyromegaly or masses palpated, and no cervical lymphadenopathy. Supple, full range of motion without nuchal rigidity, or vertebral point tenderness. Chest/axilla: Normal chest wall appearance and motion. Nontender with no deformity. No lesions are appreciated. Cardiovascular: Regular rate and rhythm with a normal S1 and S2. No gallops, murmurs, or rubs. Normal PMI, no JVD. No pulse deficits. Respiratory: Lungs have equal breath sounds bilaterally, clear to auscultation and percussion. No rales, rhonchi or wheezes noted. No increased work of breathing, no retractions or nasal flaring. Abdomen/GI: Soft, non-tender, with normal bowel sounds. No distension or tympany. No guarding or rebound. No evidence of tenderness throughout. Back: No spinal tenderness. No costovertebral tenderness. Female : Normal external genitalia. Skin: Warm, dry with normal turgor. Normal color with no rashes, no lesions, and no evidence of cellulitis. MS/ Extremity: Pulses equal, no cyanosis. Neurovascular intact. Full, normal range of motion. There is mild swelling of the left foot, no discoloration, normal peripheral pulses, no signs of arterial occlusion, there is no significant hematoma, no deformity Neuro: Awake and alert, GCS 15, oriented to person, place, time, and situation. Cranial nerves II-XII grossly intact. Motor strength 5/5 in all extremities. Sensory grossly intact. Psych: Awake, alert, with orientation to person, place and time. Behavior, mood, and affect are within normal limits 04/01 00:01 ECG was reviewed by the Attending Physician. There is normal sinus rhythm at the rate sp4 of 60, EKG time 2227, no ST elevation or depression, no ectopy, overall normal EKG Vital Signs: 03/31 19:54 BP 119 / 85; Pulse 78; Resp 17 S; Temp 98.1(O); Pulse Ox 100% on R/A; Weight 104.33 kg lg3 (R); Height 5 ft. 8 in. (R); Pain 8/10; 22:30 BP 133 / 76 LA Supine (auto/lg); Pulse 63 MON; Resp 16 S; Pulse Ox 100% on R/A; cm10 23:51 BP 148 / 78; Pulse 59; Resp 16; Pulse Ox 95% on R/A; cm10 04/01 00:14 BP 142 / 89; Pulse 63; Resp 18 S; Pulse Ox 94% on R/A; as6 03/31 19:54 Body Mass Index 34.97 (104.33 kg, 172.72 cm) lg3 03/31 19:54 Pain Scale: Adult lg3 MDM: 03/31 20:10 Patient medically screened. sp4 23:56 ED course: EXAM DESCRIPTION: Knee Left 3 View CLINICAL HISTORY: 57 years Female, left sp4 knee pain TECHNIQUE: 3 views COMPARISON: None. FINDINGS: BONES/JOINT: No acute fracture or dislocation. Mild tricompartment joint space narrowing. No marginal osteophytes or subchondral sclerosis. SOFT TISSUES: No suprapatellar joint effusion. No radiopaque foreign body. IMPRESSION: 1. No acute fracture. 2. Mild tri compartment joint space narrowing. 04/01 00:01 Data reviewed: vital signs, nurses notes, lab test result(s), cardiac enzymes, sp4 electrolytes, hepatic panel, EKG, radiologic studies, plain films, ultrasound. Consideration of Admission/Observation Escalation of care including admission/observation considered. ED course: ReSound negative for DVT, chest x-ray is normal, x-ray of the knee is normal. KG was performed secondary to complaint of palpitations is overall normal. Patient is stable for discharge home. . 03/31 20:08 Order name: Basic Metabolic Panel; Complete Time: 23:09 sp4 03/31 20:08 Order name: CBC with Diff; Complete Time: 23:09 sp4 03/31 20:08 Order name: D-Dimer; Complete Time: 22:28 4 03/31 20:08 Order name: LFT's; Complete Time: 23:09 4 03/31 20:08 Order name: NT PRO-BNP; Complete Time: 23:09 sp4 03/31 20:08 Order name: PT-INR; Complete Time: 22:28 sp4 03/31 20:08 Order name: Troponin HS; Complete Time: 23:09 sp4 03/31 20:08 Order name: XRAY Chest (1 view); Complete Time: 22:29 sp4 03/31 20:09 Order name: Extremity Venous Uni Ltd US; Complete Time: 22:29 sp4 03/31 22:30 Order name: Knee Left 3 View XRAY 4 03/31 20:08 Order name: EKG; Complete Time: 20:09 sp4 03/31 20:08 Order name: Cardiac monitoring; Complete Time: 22:14 sp4 03/31 20:08 Order name: EKG - Nurse/Tech; Complete Time: 22:33 sp4 03/31 20:08 Order name: IV Saline Lock; Complete Time: 22:14 sp4 03/31 20:08 Order name: Labs collected and sent; Complete Time: 22:14 sp4 03/31 20:08 Order name: O2 Per Protocol; Complete Time: 22:14 sp4 03/31 20:08 Order name: O2 Sat Monitoring; Complete Time: 22:14 sp4 EC:01 Rate is 60 beats/min. Rhythm is regular, Normal Sinus Rhythm. QRS [place] is Normal. [place] sp4 interval is normal. QRS interval is normal. QT interval is normal. T waves are Normal. No ST changes noted. Clinical impression: No evidence of ischemia. Interpreted by me. Administered Medications: 03/31 22:25 Drug: traMADol PO 100 mg Route: PO; cm10 23:52 Follow up: Response: No adverse reaction; Pain is unchanged, physician notified cm10 22:26 Not Given (medication not availablee): Ketorolac PO 10 mg PO once cm10 23:50 Drug: traMADol PO 50 mg Route: PO; cm10 04/01 00:23 Follow up: Response: No adverse reaction as6 03/31 23:50 Drug: Ketorolac IM 30 mg Route: IM; Site: right gluteus; cm10 04/01 00:23 Follow up: Response: No adverse reaction as6 03/31 23:52 Not Given (Patient Refused): Ondansetron IVP 4 mg IVP once; over 2 minutes cm10 Disposition Summary: 04/01/23 00:05 Discharge Ordered Location: Home sp4 Problem: new sp4 Symptoms: have improved sp4 Condition: Stable sp4 Diagnosis - Compressive injury left lower extremity, acute left knee sprain, left foot sp4 swelling, left lower extremity acute pain. Posttraumatic left lower extremity pain Followup: sp4 - With: Private Physician - When: 10 - 14 days - Reason: Recheck today's complaints Followup: sp4 - With: Shawn Thurman MD - When: 10 - 14 days - Reason: Recheck today's complaints Discharge Instructions: - Discharge Summary Sheet sp4 - Knee Sprain, Adult, Whbj-vz-Wiac sp4 Forms: - [email or web address] sp4 Prescriptions: - ketorolac 10 mg Oral tablet - take 1 tablet by ORAL route every 8 hours PRN pain - moderate to severe; 30 sp4 tablet; Refills: 0, Product Selection Permitted - Tramadol 50 mg Oral Tablet - take 1 tablet by ORAL route every 8 hours as needed for moderate pain; 20 sp4 tablet; Refills: 0, Product Selection Permitted Signatures: Dispatcher [facility] Mariangel Menendez RN RN lg3 Dale Yost MD MD sp4 Cookie Neely, BRICE RN cm10 Trent Hidalgo RN as6
[2023-04-01 01:28] VITALS: TEMP 98.1
[2023-04-01 01:32] VITALS: BP 142/89; O2SAT 94
--- NOTE | 2023-04-01 15:38 | RAD REPORT ---
EXAM DESCRIPTION: RAD - Knee Left 3 View - 03/31/2023 10:49 pm CLINICAL HISTORY: 57 years Female, left knee pain TECHNIQUE: 3 views COMPARISON: None. FINDINGS: BONES/JOINT: No acute fracture or dislocation. Mild tricompartment joint space narrowing . No marginal osteophytes or subchondral sclerosis. SOFT TISSUES: No suprapatellar joint effusion. No radiopaque foreign body. IMPRESSION: 1. No acute fracture. 2. Mild tricompartment joint space narrowing. Electronically signed by: Daljit Penaloza MD 03/31/2023 11:23 PM CDT Due to temporary technical issues with the PACS/Fluency reporting system, reports are being signed by the in house radiologists without review as a courtesy to insure prompt reporting. The interpreting radiologist is fully responsible for the content of the report.
--- NOTE | 2023-04-02 16:20 | EKG ---
Test Date: 2023-03-31 Test Time: 22:27:48 Electrical Project Manager: TREMAYNE MEASUREMENT RESULTS: Intervals: Rate: 60 NM: 150 QRSD: 84 QT: 468 QTc: 468 [place]: P: 11 NM: 150 QRS: 18 T: -70 INTERPRETIVE STATEMENTS: Normal sinus rhythm with sinus arrhythmia Low voltage QRS Cannot rule out Anterior infarct, age undetermined ST & T wave abnormality, consider inferior ischemia Abnormal ECG Compared to ECG 10/05/2018 19:06:51 Low QRS voltage now present ST (T wave) deviation now present Possible ischemia now present Myocardial infarct finding still present Electronically Signed On 04-02-23 16:18:06 CDT by Thomas Omer
== END 2023-04-01 00:23 | disposition home or self-care (01) ==
LOC: ER 19:47
DX: S89.92XA Unspecified injury of left lower leg, initial encounter (principal); S83.92XA Sprain of unspecified site of left knee, initial encounter; M79.89 Other specified soft tissue disorders; I10 Essential (primary) hypertension; Z88.0 Allergy status to penicillin; Z88.2 Allergy status to sulfonamides; Z88.5 Allergy status to narcotic agent; Z88.6 Allergy status to analgesic agent
CPT/HCPCS: 36415; 71045; 80048; 80076; 83880; 84484; 85025; 85379; 85610; 93005; 93971; 96372; 99284

== ENCOUNTER 2023-09-07 01:15 | Emergency (ER) | payer BC ==
[2023-09-07] MEDS ORDERED: ONDANSETRON 4 MG/2 ML VIAL ONE (01:57)
[2023-09-07] MEDS ORDERED: NA CHLORIDE 0.9% 1,000 ML ONE ×2 (01:57→05:41)
[2023-09-07] MEDS ORDERED: FENTANYL CITR 100 MCG/2 ML ONE (01:57)
[2023-09-07] MEDS ORDERED: FAMOTIDINE 20 MG/2 ML VIAL IV ONE (01:57)
[2023-09-07 02:33] LABS: Absolute Lymphocytes (CBC) 0.7 K/uL (0.7-4.9); Hematocrit 33.4 % (36.0-45.0); Lymphocytes % 14.3 % (15.3-44.8); MCV 83.3 fL (80-100); MPV 8.1 fL (7.6-11.3); Platelets 270 thou/uL (152-406); RBC Red Blood Cell Count 4.01 M/uL (3.86-4.86)
[2023-09-07 02:46] LABS: Albumin 2.7 g/dL (3.4-5.0); Bilirubin Total 0.5 mg/dL (0.2-1.0); Potassium 3.5 mEq/L (3.5-5.1); Protein, Total 6.3 g/dL (6.4-8.2)
[2023-09-07] MEDS ORDERED: METRONIDAZOLE 500mg IVPB 500 MG/100 ML BAG IV ONE (05:41)
[2023-09-07] MEDS ORDERED: CEFTRIAXONE 1000 MG/VIAL ONE (05:41)
[2023-09-07] MEDS ORDERED: NA CHLORIDE 0.9% 50 ML ONE (05:41)
--- NOTE | 2023-09-07 06:49 | ER ---
Nurse's Notes [facility] Name: Chris Greer Age: 58 yrs Sex: Female : 1965 Arrival Date: 09/07/2023 Time: 01:15 Bed 5 Private MD: Diagnosis: Abdominal pain, Generalized;Gastric perforation, intraperitoneal air Presentation: 09/07 01:33 Chief complaint: Patient states: I am having left upper abdominal pain that started jb4 yesterday. I tried to tough it out thinking it was a stomach bug but it continues to get worse. The pain radiates to my left shoulder and neck. Coronavirus screen: At this time, the client does not indicate any symptoms associated with coronavirus-19. Ebola Screen: No symptoms or risks identified at this time. Initial Sepsis Screen: Does the patient meet any 2 criteria? No. Patient's initial sepsis screen is negative. Does the patient have a suspected source of infection? Yes: Acute abdominal pain. Risk Assessment: Do you want to hurt yourself or someone else? Patient reports no desire to harm self or others. Onset of symptoms was September 06, 2023. Transition of care: patient was not received from another setting of care. 01:33 Method Of Arrival: Wheelchair jb4 01:33 Acuity: ASH 3 jb4 Historical: - Allergies: 01:36 Aspirin; jb4 01:36 Codeine; jb4 01:36 Morphine; jb4 01:36 Motrin; jb4 01:36 PENICILLINS; jb4 01:36 Sulfa (Sulfonamide Antibiotics); jb4 - PMHx: 01:36 acid reflux; depressive disorder; GERD; Hypertension; jb4 - PSHx: 01:36 Appendectomy; section; Cholecystectomy; Gastric Bypass; intestional stent; jb4 - Immunization history:: Adult Immunizations up to date. - Social history:: Smoking status: Reported history of juuling and/or vaping. - Family history:: not pertinent. Screenin:40 [facility] ED Fall Risk Assessment (Adult) History of falling in the last 3 months, jw7 including since admission No falls in past 3 months (0 pts) Score/Fall Risk Level 0 - 2 = Low Risk Oriented to surroundings, Maintained a safe environment. Abuse screen: Denies threats or abuse. Denies injuries from another. Nutritional screening: No deficits noted. Tuberculosis screening: No symptoms or risk factors identified. Assessment: 01:40 General: Appears in no apparent distress. uncomfortable, Behavior is calm, cooperative. jw7 Pain: Pain currently is 8 out of 10 on a pain scale. Pain began 1 day ago. Is continuous. Pain: Complains of pain in left upper quadrant Pain radiates to left arm and neck. Neuro: [place] Agitation-Sedation Scale (RASS): 0 - Alert and Calm Level of Consciousness is awake, alert, obeys commands, Oriented to person, place, time, situation. Cardiovascular: Capillary refill < 3 seconds Clubbing of nail beds is absent JVD is absent Patient's skin is warm and dry. Respiratory: Airway is patent Trachea midline Respiratory effort is even, unlabored, Respiratory pattern is regular, symmetrical. GI: Abdomen is round non-distended, Bowel sounds present X 4 quads. Abd is soft Abdomen is tender to palpation in left upper quadrant Reports upper abdominal pain, nausea, vomiting. : No deficits noted. No signs and/or symptoms were reported regarding the genitourinary system. EENT: No deficits noted. No signs and/or symptoms were reported regarding the EENT system. Derm: No deficits noted. No signs and/or symptoms reported regarding the dermatologic system. Musculoskeletal: No deficits noted. No signs and/or symptoms reported regarding the musculoskeletal system. 02:40 Reassessment: Patient appears in no apparent distress at this time. Patient and/or jw7 family updated on plan of care and expected duration. Pain level reassessed. Patient is alert, oriented x 3, equal unlabored respirations, skin warm/dry/pink. Patient states symptoms have improved. 03:40 Reassessment: Patient appears in no apparent distress at this time. No changes from jw7 previously documented assessment. Patient and/or family updated on plan of care and expected duration. Pain level reassessed. Patient is alert, oriented x 3, equal unlabored respirations, skin warm/dry/pink. 04:22 Reassessment: Patient appears in no apparent distress at this time. No changes from jw7 previously documented assessment. Patient and/or family updated on plan of care and expected duration. Pain level reassessed. Patient is alert, oriented x 3, equal unlabored respirations, skin warm/dry/pink. 05:30 Reassessment: Patient appears in no apparent distress at this time. Patient and/or jw7 family updated on plan of care and expected duration. Pain level reassessed. Patient is alert, oriented x 3, equal unlabored respirations, skin warm/dry/pink. 07:00 Reassessment: No changes from previously documented assessment. Report received from 1 shift production associate RN. 07:40 Reassessment: No changes from previously documented assessment. Patient and/or family ll1 updated on plan of care and expected duration. Pain level reassessed. Patient is alert, oriented x 3, equal unlabored respirations, skin warm/dry/pink. Vital Signs: 01:33 BP 112 / 59; Pulse 70; Resp 16; Temp 98.7(O); Pulse Ox 100% on R/A; Weight 107.5 kg jb4 (M); Height 5 ft. 8 in. ; Pain 10/10; 02:30 BP 102 / 57; Pulse 64; Resp 16; Pulse Ox 99% ; jj7 04:33 BP 101 / 54; Pulse 64; Resp 16; Pulse Ox 100% ; jj7 05:34 BP 124 / 74; Pulse 69; Resp 17; Pulse Ox 95% ; jj7 07:35 BP 106 / 69; Pulse 74; Resp 17; Pulse Ox 95% ; ll1 01:33 Body Mass Index 36.04 (107.50 kg, 172.72 cm) jb4 01:33 Pain Scale: Adult jb4 ED Course: 01:20 Patient arrived in ED. gm2 01:36 Triage completed. jb4 01:36 Arm band placed on right wrist. jb4 01:40 Patient has correct armband on for positive identification. Bed in low position. Call [facility] light in reach. Side rails up X2. 01:55 Dale Yost MD is Attending Physician. sp4 02:36 Initial lab(s) drawn, by ED staff, sent to lab. Inserted saline lock: 20 gauge in right jw7 antecubital area, using aseptic technique. 03:45 Missed attempt(s): 22 gauge in right wrist. forearm. Missed attempt(s): 22 gauge in jb4 left forearm. 03:55 Abdomen In Process Unspecified. EDMS 04:21 Libby Rodriguez, BRICE is Primary Nurse. jj7 05:12 Inserted saline lock: 22 gauge in left antecubital area, using aseptic technique. jj7 05:57 Provided Education on: need for transfer. jw7 07:41 No provider procedures requiring assistance completed. Patient transferred, IV remains ll1 in place. Administered Medications: 01:37 Not Given (Physician Discretion): morphineor iv 4 mg IVP once over 4 mins lg3 02:01 Not Given (Duplicate Order): fentanyl (pf)25 mcg IVP once sp4 02:36 Drug: Famotidine IVP 20 mg IVP once; dilute with 10 mL 0.9% NaCl; give over 2 minutes jw7 Route: IVP; Site: right antecubital; 04:22 Follow up: Response: No adverse reaction; Marked relief of symptoms jw7 02:36 Drug: Ondansetron IVP 4 mg IVP once; over 2 minutes Route: IVP; Site: left antecubital; jw7 04:22 Follow up: Response: No adverse reaction; Marked relief of symptoms jw7 02:36 Drug: NS 0.9% IV 1000 ml IV at 1000 ml once Route: IV; Rate: 1000 ml; Site: right [facility] antecubital; 07:41 Follow up: IV Status: Completed infusion 1 02:36 Drug: fentaNYL (PF) IVP 100 mcg IVP once Route: IVP; Site: right antecubital; jw7 04:23 Follow up: Response: No adverse reaction; Marked relief of symptoms jw7 05:56 Drug: NS 0.9% IV 1000 ml IV at 125 ml/hr continuous Route: IV; Rate: 125 ml/hr; Site: [facility] right wrist; 07:40 Follow up: IV Status: Completed infusion [facility] 05:57 Drug: Rocephin - Rocephin (cefTRIAXone) IVPB 1 grams IVPB once over 30 mins; (mix in 50 jw7 mL NS) Route: IVPB; Infused Over: 30 mins; Site: right wrist; 06:38 Follow up: IV Status: Completed infusion j7 06:38 Drug: metroNIDAZOLE IVPB 500 mg 100 ml IVPB at 200 ml/hr once over 30 mins Volume: 100 jj7 ml; Route: IVPB; Rate: 200 ml/hr; Infused Over: 30 mins; Site: right wrist; 07:40 Follow up: IV Status: Completed infusion; IV Intake: 200ml 1 06:57 Drug: HYDROmorphone IVP 1 mg IVP once Route: IVP; Site: right wrist; jj7 07:40 Follow up: Response: No adverse reaction 1 06:57 Drug: metoCLOPramide IVP 10 mg IVP once; over 1 to 2 minutes Route: IVP; Site: right jj7 wrist; 07:40 Follow up: Response: No adverse reaction ll1 Medication: 05:57 VIS not applicable for this client. jw7 Intake: 07:40 IV: 200ml; Total: 200ml. ll1 Outcome: 06:48 ER care complete, transfer ordered by . paula 07:41 Transferred by ground EMS to [facility], Transfer form completed. Note: ll1 [facility] 07:41 Condition: stable 07:41 Instructed on the need for transfer, 07:44 Patient left the ED. ll1 Signatures: Dispatcher [employer] EDMS Iker Millan RN RN jb4 Scout Ambrose RN RN ll1 Lisa Babin RN RN jw7 Libby Rodriguez RN RN jjDale Banks MD MD spJanay Garcia gm2 Mariangel Barbosa RN lg3 Corrections: (The following items were deleted from the chart) 04:27 01:40 Pain: Complains of pain in left upper quadrant Pain radiates to left arm and left jw7 shoulder 7 07:41 07:35 BP 106 / 69; Pulse 74bpm; Pulse Ox 95%; ll1 ll1
--- NOTE | 2023-09-07 06:49 | EDPHYS ---
Physician Documentation [facility] Name: Akila Greer Age: 58 yrs Sex: Female : 1965 Arrival Date: 09/07/2023 Time: 01:15 Bed 5 Private MD: ED Physician Dale Yost HPI: 09/07 01:55 This 58 yrs old Female presents to ER via Wheelchair with complaints of sp4 Abdominal Pain, Other. 01:56 PMH - Allergies: 19:57 Aspirin; Codeine; Motrin; PENICILLINS; Sulfa (Sulfonamide sp4 Antibiotics); Morphine Home Meds: 19:57 pantoprazole oral; Lorazepam Oral; propranolol Oral; Fluconazole Oral PMHx: 19:57 Hypertension; Depressive disorder; gerd; acid reflux PSHx: intestional stent; gastric bypass; section; Cholecystectomy; Appendectomy; l. 04:47 History of Jacqueline-en-Y gastric bypass at [facility] by Dr. Yvette Barton sp4 Historical: - Allergies: 01:36 Aspirin; jb4 01:36 Codeine; jb4 01:36 Morphine; jb4 01:36 Motrin; jb4 01:36 PENICILLINS; jb4 01:36 Sulfa (Sulfonamide Antibiotics); jb4 - PMHx: 01:36 acid reflux; depressive disorder; GERD; Hypertension; jb4 - PSHx: 01:36 Appendectomy; section; Cholecystectomy; Gastric Bypass; intestional stent; jb4 - Immunization history:: Adult Immunizations up to date. - Social history:: Smoking status: Reported history of juuling and/or vaping. - Family history:: not pertinent. ROS: 04:47 Constitutional: Negative for fever, chills, and weight loss, positive left-sided sp4 abdominal pain and vomiting 04:47 All other systems are negative, Exam: 04:47 Constitutional: This is a well developed, well nourished patient who is awake, alert, sp4 and in no acute distress. Head/Face: Normocephalic, atraumatic. Eyes: Pupils equal round and reactive to light, extra-ocular motions intact. Lids and lashes normal. Conjunctiva and sclera are not injected. Cornea within normal limits. Periorbital areas with no swelling, redness, or edema. ENT: Nares patent. No nasal discharge, no septal abnormalities noted. Tympanic membranes are normal and external auditory canals are clear. Oropharynx with no redness, swelling, or masses, exudates, or evidence of obstruction, uvula midline. Mucous membranes moist. Neck: Trachea midline, no thyromegaly or masses palpated, and no cervical lymphadenopathy. Supple, full range of motion without nuchal rigidity, or vertebral point tenderness. Chest/axilla: Normal chest wall appearance and motion. Nontender with no deformity. No lesions are appreciated. Cardiovascular: Regular rate and rhythm with a normal S1 and S2. No gallops, murmurs, or rubs. Normal PMI, no JVD. No pulse deficits. Respiratory: Lungs have equal breath sounds bilaterally, clear to auscultation and percussion. No rales, rhonchi or wheezes noted. No increased work of breathing, no retractions or nasal flaring. Abdomen/GI: Soft, with normal bowel sounds. No distension or tympany. No guarding or rebound. Positive right-sided abdominal tenderness, obese abdomen Back: No spinal tenderness. No costovertebral tenderness. Skin: Warm, dry with normal turgor. Normal color with no rashes, no lesions, and no evidence of cellulitis. MS/ Extremity: Pulses equal, no cyanosis. Neurovascular intact. Full, normal range of motion. Neuro: Awake and alert, GCS 15, oriented to person, place, time, and situation. Cranial nerves II-XII grossly intact. Motor strength 5/5 in all extremities. Sensory grossly intact. Psych: Awake, alert, with orientation to person, place and time. Behavior, mood, and affect are within normal limits Vital Signs: 01:33 BP 112 / 59; Pulse 70; Resp 16; Temp 98.7(O); Pulse Ox 100% on R/A; Weight 107.5 kg jb4 (M); Height 5 ft. 8 in. ; Pain 10/10; 02:30 BP 102 / 57; Pulse 64; Resp 16; Pulse Ox 99% ; jj7 04:33 BP 101 / 54; Pulse 64; Resp 16; Pulse Ox 100% ; jj7 05:34 BP 124 / 74; Pulse 69; Resp 17; Pulse Ox 95% ; jj7 07:35 BP 106 / 69; Pulse 74; Resp 17; Pulse Ox 95% ; ll1 01:33 Body Mass Index 36.04 (107.50 kg, 172.72 cm) jb4 01:33 Pain Scale: Adult jb4 MDM: 02:01 Patient medically screened. sp4 04:47 Differential Diagnosis altered mental status, sepsis, flu. Data reviewed: vital signs, sp4 nurses notes. Data reviewed: old medical records, lab test result(s), radiologic studies, CT scan. 04:55 ED course: CT - TECHNIQUE: Axial computed tomography images of the abdomen and pelvis sp4 without intravenous contrast. Sagittal and coronal reformatted images were created and reviewed. This CT exam was performed using one or more of the following dose reduction techniques: automated exposure control, adjustment of the mA and/or kV according to patient size, and/or use of iterative reconstruction technique. COMPARISON: No relevant prior studies available. FINDINGS: Lung bases: Unremarkable. No mass. No consolidation. Heart: Small pericardial effusion. ABDOMEN: Liver: Hepatomegaly with diffuse hepatic steatosis. Gallbladder and bile ducts: Gallbladder is surgically absent. No ductal dilation. Pancreas: Unremarkable. No ductal dilation. Spleen: Unremarkable. No splenomegaly. Adrenals: Unremarkable. No mass. Kidneys and ureters: Unremarkable. No obstructing stones. No hydronephrosis. Stomach and bowel: Postsurgical changes related to a Yhgp-dj-Zvtefhbj bypass. There are inflammatory changes including mucosal thickening with mild adjacent stranding involving the bypassed portion of the stomach as well as the gastric pouch near the anastomosis. No obstruction. PELVIS: Appendix: No findings to suggest acute appendicitis. Bladder: Unremarkable. Reproductive: Unremarkable as visualized. ABDOMEN and PELVIS: Intraperitoneal space: There is a small amount of scattered free air within the abdomen including adjacent to the bypassed portion of the stomach as well as in the region of the gastrojejunal anastomosis. Small amount of free fluid in the lower pelvis. [address], [facility] [id number] Fax: Final Radiology Report Name: AKILA GREER Age: 58y Date: 09/07/2023 1:34 AM : 1965 Study: Abdomen Pelvis Wo Contrast Requesting Physician: Dale Yost [id number] AKILA GREER Page 1 of 2 [id number] Abdomen Pelvis Wo Contrast Bones/joints: Up to 40% vertebral body height loss centrally at T12. No acute fracture. No dislocation. Soft tissues: Unremarkable. Vasculature: Unremarkable. No abdominal aortic aneurysm. Lymph nodes: Unremarkable. No enlarged lymph nodes. IMPRESSION: 1. Postsurgical changes related to a Ooyh-rg-Yfnhohod bypass. 2. There is a small amount of scattered free air within the abdomen including adjacent to the bypassed portion of the stomach as well as in the region of the gastrojejunal anastomosis. 3. There are inflammatory changes including mucosal thickening with mild adjacent stranding involving the bypassed portion of the stomach as well as the gastric pouch near the anastomosis. 4. Small pericardial effusion. 5. Hepatomegaly with diffuse hepatic steatosis. 6. Gallbladder is surgically absent. 7. Small amount of free fluid in the lower pelvis.. 06:59 ED course: Was discussed with her bariatric surgeon Dr. Crawford, who accepted patient in sp4 [facility]. 09/07 01:34 Order name: CBC with Diff; Complete Time: 04:50 3 09/07 01:34 Order name: CMP; Complete Time: 04:50 3 09/07 01:34 Order name: Lipase; Complete Time: 04:50 3 09/07 04:11 Order name: CREATININE WHOLE BLOOD; Complete Time: 04:50 EDOH 09/07 03:55 Order name: Abdomen EDMS 09/07 01:34 Order name: IV Saline Lock; Complete Time: 02:35 3 09/07 01:34 Order name: Labs collected and sent; Complete Time: 02:35 3 09/07 04:50 Order name: NPO; Complete Time: 05:24 sp4 Administered Medications: 01:37 Not Given (Physician Discretion): morphineor iv 4 mg IVP once over 4 mins 3 02:01 Not Given (Duplicate Order): fentanyl (pf)25 mcg IVP once 4 02:36 Drug: Famotidine IVP 20 mg IVP once; dilute with 10 mL 0.9% NaCl; give over 2 minutes jw7 Route: IVP; Site: right antecubital; 04:22 Follow up: Response: No adverse reaction; Marked relief of symptoms jw7 02:36 Drug: Ondansetron IVP 4 mg IVP once; over 2 minutes Route: IVP; Site: left antecubital; jw 04:22 Follow up: Response: No adverse reaction; Marked relief of symptoms jw7 02:36 Drug: NS 0.9% IV 1000 ml IV at 1000 ml once Route: IV; Rate: 1000 ml; Site: right [facility] antecubital; 07:41 Follow up: IV Status: Completed infusion ll1 02:36 Drug: fentaNYL (PF) IVP 100 mcg IVP once Route: IVP; Site: right antecubital; 7 04:23 Follow up: Response: No adverse reaction; Marked relief of symptoms jw7 05:56 Drug: NS 0.9% IV 1000 ml IV at 125 ml/hr continuous Route: IV; Rate: 125 ml/hr; Site: [facility] right wrist; 07:40 Follow up: IV Status: Completed infusion ll1 05:57 Drug: Rocephin - Rocephin (cefTRIAXone) IVPB 1 grams IVPB once over 30 mins; (mix in 50 jw7 mL NS) Route: IVPB; Infused Over: 30 mins; Site: right wrist; 06:38 Follow up: IV Status: Completed infusion jj7 06:38 Drug: metroNIDAZOLE IVPB 500 mg 100 ml IVPB at 200 ml/hr once over 30 mins Volume: 100 jj7 ml; Route: IVPB; Rate: 200 ml/hr; Infused Over: 30 mins; Site: right wrist; 07:40 Follow up: IV Status: Completed infusion; IV Intake: 200ml 1 06:57 Drug: HYDROmorphone IVP 1 mg IVP once Route: IVP; Site: right wrist; [facility] 07:40 Follow up: Response: No adverse reaction ll1 06:57 Drug: metoCLOPramide IVP 10 mg IVP once; over 1 to 2 minutes Route: IVP; Site: right [facility] wrist; 07:40 Follow up: Response: No adverse reaction ll1 Disposition Summary: 09/07/23 06:48 Transfer Ordered Notes: Transfer Location: [facility] sp4 Reason: Higher level of care sp4 Condition: Stable sp4 Problem: new sp4 Symptoms: have improved sp4 Accepting Physician: Kylie [facility] ER to ER transfer(09/07/23 07:44) ll1 Diagnosis - Abdominal pain, Generalized sp4 - Gastric perforation, intraperitoneal air sp4 Discharge Instructions: - Discharge Summary Sheet rv1 Forms: - SBAR form rv1 - Medication Reconciliation Form sp4 Signatures: Dispatcher [employer] EDMS Iker Millan, RN RN jb4 Mariangel Barbosa RN RN lg3 Scout Ambrose, RN RN ll1 Lisa Babin RN RN jw7 Libby Rodriguez RN RN jj7 Dale Yost MD MD sp4 Corrections: (The following items were deleted from the chart) 03:55 01:35 Abdomen Pelvis W Con+CT.RAD.BRZ ordered. EDOH EDMS 07:44 06:48 No real [facility] ER to ER transfer sp4 ll1
[2023-09-07] MEDS ORDERED: HYDROMORPHONE HCL 1 MG/ML INJ ONE (07:07)
[2023-09-07] MEDS ORDERED: METOCLOPRAMIDE 10 MG/2mL INJ ONE (07:07)
[2023-09-07 07:51] VITALS: TEMP 98.7
[2023-09-07 07:54] VITALS: BP 106/69; O2SAT 95
--- NOTE | 2023-09-07 12:43 | RAD REPORT ---
EXAM DESCRIPTION: CT - Abdomen Pelvis Wo Contrast - 09/07/2023 6:44 am ADDENDUM #1 THIS REPORT CONTAINS FINDINGS THAT MAY BE CRITICAL TO PATIENT CARE: The findings were verbally discus sed via telephone conference with Dr. Dale Yost MD by Dr. Daljit Sanchez on 09/07/2023 4:38 AM GUEST SERVICE REPRESENTATIVE .The results were acknowledged and understood. Electronically signed by: Daljit Sanchez MD 09/07/2023 04:38 AM GUEST SERVICE REPRESENTATIVE End of Addendum EXAM DESCRIPTION: CT Abdomen and Pelvis Without Intravenous Contrast CLINICAL HISTORY: The patient is 58 years old and is Female; ABD PAIN TECHNIQUE: Axial computed tomography images of the abdomen and pelvis without intravenous contrast. Sagittal and coronal reformatted images were created and reviewed. This CT exam was performed usi ng one or more of the following dose reduction techniques: automated exposure control, adjustment o f the mA and/or kV according to patient size, and/or use of iterative reconstruction technique. COMPARISON: No relevant prior studies available. FINDINGS: Lung bases: Unremarkable. No mass. No consolidation. Heart: Small pericardial effusion. ABDOMEN: Liver: Hepatomegaly with diffuse hepatic steatosis. Gallbladder and bile ducts: Gallbladder is surgically absent. No ductal dilation. Pancreas: Unremarkable. No ductal dilation. Spleen: Unremarkable. No splenomegaly. Adrenals: Unremarkable. No mass. Kidneys and ureters: Unremarkable. No obstructing stones. No hydronephrosis. Stomach and bowel: Postsurgical changes related to a Jacqueline-en-Y gastric bypass. There are inflammatory changes including mucosal thickening with mild adjacent stranding invo lving the bypassed portion of the stomach as well as the gastric pouch near the anastomosis. No obstruction. PELVIS: Appendix: No findings to suggest acute appendicitis. Bladder: Unremarkable. Reproductive: Unremarkable as visualized. ABDOMEN and PELVIS: Intraperitoneal space: There is a small amount of scattered free air within the abdomen including adjacent to the bypassed portion of the stomach as well as in the region of the gastrojejunal anasto mosis. Small amount of free fluid in the lower pelvis. Bones/joints: Up to 40% vertebral body height loss centrally at T12. No acute fracture. No dislocation. Soft tissues: Unremarkable. Vasculature: Unremarkable. No abdominal aortic aneurysm. Lymph nodes: Unremarkable. No enlarged lymph nodes. IMPRESSION: 1. Postsurgical changes related to a Jacqueline-en-Y gastric bypass. 2. There is a small amount of scattered free air within the abdomen including adjacent to the bypas sed portion of the stomach as well as in the region of the gastrojejunal anastomosis. 3. There are inflammatory changes including mucosal thickening with mild adjacent stranding involvi ng the bypassed portion of the stomach as well as the gastric pouch near the anastomosis. 4. Small pericardial effusion. 5. Hepatomegaly with diffuse hepatic steatosis. 6. Gallbladder is surgically absent. 7. Small amount of free fluid in the lower pelvis. Electronically signed by: Daljit Sanchez MD 09/07/2023 04:29 AM GUEST SERVICE REPRESENTATIVE Due to temporary technical issues with the PACS/Fluency reporting system, reports are being signed by the in house radiologist without review as a courtesy to ensure prompt reporting. The interpreting r adiologist is fully responsible for the content of the report.
== END 2023-09-07 07:44 | disposition short-term general hospital (02) ==
LOC: ER 01:15
DX: K25.5 Chronic or unspecified gastric ulcer with perforation (principal); K21.9 Gastro-esophageal reflux disease without esophagitis; I10 Essential (primary) hypertension; Z88.0 Allergy status to penicillin; Z88.2 Allergy status to sulfonamides; Z88.5 Allergy status to narcotic agent; Z88.6 Allergy status to analgesic agent
CPT/HCPCS: 85025; 36415; 82565; 83690; 80053; 74176; J2765; J3010; J1170; J2405; J7030 ×2; J0696

== ENCOUNTER → 2023-10-30 | Emergency (ER) | payer BC, SELFPAY ==
[~2023-10-30] MED LIST: CODEINE 30MG/APAP 300MG TAB ONE; HYDROMORPHONE HCL 1 MG/ML INJ ONE; METOCLOPRAMIDE 10 MG/2mL INJ ONE; NA CHLORIDE 0.9% 1,000 ML ONE; ONDANSETRON 4 MG/2 ML VIAL ONE
[2023-10-30 20:05] LABS: Specific Gravity < 1.005 (1.005-1.030); Urine Bacteria None Seen /HPF (<20); Urine Bilirubin NEGATIVE (Negative); Urine Blood Negative (Negative); Urine Clarity Turbid (Clear); Urine Color Colorless (Yellow); Urine Glucose NEGATIVE (Negative); Urine Protein NEGATIVE (Negative); Urine RBC None Seen /HPF (None Seen); Urine Urobilinogen Normal (Normal); Urine pH 6.5 (5.0-7.0)
[2023-10-30 20:47] LABS: Absolute Lymphocytes (CBC) 1.5 K/uL (0.7-4.9); Hematocrit 35.6 % (36.0-45.0); Lymphocytes % 27.7 % (15.3-44.8); MCV 77.5 fL (80-100); MPV 7.8 fL (7.6-11.3); Platelets 290 thou/uL (152-406); RBC Red Blood Cell Count 4.59 M/uL (3.86-4.86)
[2023-10-30 21:01] LABS: Bilirubin Total 0.5 mg/dL (0.2-1.0); C-Reactive Protein 2.97 mg/L (<3.00); Potassium 3.3 mEq/L (3.5-5.1)
--- NOTE | 2023-10-30 22:01 | RAD REPORT ---
EXAM DESCRIPTION: CT - Abdomen Pelvis W Contrast - 10/30/2023 9:43 pm CLINICAL HISTORY: Abdominal pain COMPARISON: 2019 TECHNIQUE: Computed axial tomography of the abdomen pelvis was obtained. 100 cc Isovue-300 was admin istered intravenously. Oral contrast was not requested which limits evaluation of bowel and appendix All CT scans are performed using dose optimization technique as appropriate and may include automated exposure control or mA/KV adjustment according to patient size. FINDINGS: Fatty liver. Mild thyromegaly Gastric bypass Spleen, pancreas, adrenal and right kidney appear unremarkable. Left renal calculi. Largest 7 millimeters. No hydronephrosis. No evidence of diverticulitis. No adnexal mass. 4.7 centimeter area stranding left aspect of the greater omentum Chronic compression deformity T12 vertebral body IMPRESSION: 4.7 centimeter area stranding left aspect of the greater omentum may represent an early infarct. Nonobstructing left renal calculi
--- NOTE | 2023-10-30 22:54 | ER ---
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 Heating pads aren't working and the pain is getting worse. I'm nauseous and can't keep food down.". Coronavirus screen: Vaccine status: Patient reports receiving the 2nd dose of the covid vaccine. Ebola Screen: No symptoms or risks identified at this time. Initial Sepsis Screen: Does the patient meet any 2 criteria? No. Patient's initial sepsis screen is negative. Does the patient have a suspected source of infection? No. Patient's initial sepsis screen is negative. Risk Assessment: Do you want to hurt yourself or someone else? Patient reports no desire to harm self or others. Onset of symptoms was October 30, 2023. 19:20 Method Of Arrival: Wheelchair mb9 19:20 Acuity: ASH 3 mb9 Triage Assessment: 19:22 General: Appears uncomfortable, Behavior is anxious. Pain: Complains of pain in abdomen mb9 Pain radiates to LUQ and LLQ. EENT: No signs and/or symptoms were reported regarding the EENT system. Neuro: [place] Agitation-Sedation Scale (RASS): 0 - Alert and Calm Level of Consciousness is awake, alert, obeys commands, Oriented to person, place, time, situation, Appropriate for age. Cardiovascular: Patient's skin is warm and dry. Respiratory:. GI: Abdomen is round non-distended, Reports lower abdominal pain, upper abdominal pain, nausea, vomiting. : No signs and/or symptoms were reported regarding the genitourinary system. Derm: Skin is pink, warm \\T\\ dry. Musculoskeletal: Range of motion: intact in all extremities. Historical: - Allergies: 19:21 Aspirin; mb9 19:21 Codeine; mb9 19:21 Morphine; mb9 19:21 Motrin; mb9 19:21 PENICILLINS; mb9 19:21 Sulfa (Sulfonamide Antibiotics); mb9 - Home Meds: 19:21 Propranolol Oral [Active]; pantoprazole oral [Active]; mb9 - PMHx: 19:21 acid reflux; depressive disorder; GERD; Hypertension; mb9 - PSHx: 19:21 Appendectomy; section; Cholecystectomy; Gastric Bypass; intestional stent; mb9 - Immunization history:: Adult Immunizations up to date. - Social history:: Smoking status: Patient denies any tobacco usage or history of. - Family history:: not pertinent. Screenin:41 [facility] ED Fall Risk Assessment (Adult) History of falling in the last 3 months, tm6 including since admission No falls in past 3 months (0 pts). Abuse screen: Denies threats or abuse. Denies injuries from another. Nutritional screening: No deficits noted. Tuberculosis screening: No symptoms or risk factors identified. Assessment: 20:41 General: Appears uncomfortable. Pain: Complains of pain in left upper quadrant and left tm6 lower quadrant Pain currently is 9 out of 10 on a pain scale. Quality of pain is described as throbbing, Pain began 1 day ago. Neuro: Level of Consciousness is awake, alert, obeys commands, Oriented to person, place, time, situation. Cardiovascular: Capillary refill < 3 seconds Patient's skin is warm and dry. Respiratory: Airway is patent Respiratory effort is even, unlabored, Respiratory pattern is regular, symmetrical. GI: Abdomen is round Reports lower abdominal pain, upper abdominal pain. : No signs and/or symptoms were reported regarding the genitourinary system. EENT: No signs and/or symptoms were reported regarding the EENT system. Derm: No signs and/or symptoms reported regarding the dermatologic system. Musculoskeletal: No signs and/or symptoms reported regarding the musculoskeletal system. 21:36 Reassessment: Patient appears in no apparent distress at this time. No changes from tm6 previously documented assessment. Patient and/or family updated on plan of care and expected duration. Pain level reassessed. Patient is alert, oriented x 3, equal unlabored respirations, skin warm/dry/pink. 22:41 Reassessment: Patient appears in no apparent distress at this time. No changes from jw7 previously documented assessment. Patient and/or family updated on plan of care and expected duration. Pain level reassessed. Patient is alert, oriented x 3, equal unlabored respirations, skin warm/dry/pink. 23:12 Reassessment: Patient appears in no apparent distress at this time. No changes from tm6 previously documented assessment. Patient and/or family updated on plan of care and expected duration. Pain level reassessed. Patient is alert, oriented x 3, equal unlabored respirations, skin warm/dry/pink. Vital Signs: 19:20 BP 135 / 80; Pulse 74; Resp 18; Temp 98.2; Pulse Ox 100% ; Weight 104.33 kg; Height 5 mb9 ft. 8 in. ; Pain 9/10; 20:41 BP 160 / 85; Pulse 66; Resp 15; Pulse Ox 94% ; Pain 9/10; tm6 21:35 BP 173 / 83; Pulse 67; Resp 13; Pulse Ox 94% on R/A; Pain 4/10; tm6 22:41 BP 124 / 70; Pulse 56; Resp 17 S; Pulse Ox 97% on R/A; jw7 23:11 BP 117 / 69; Pulse 59; Resp 16; Pulse Ox 99% on R/A; Pain 3/10; tm6 19:20 Body Mass Index 34.97 (104.33 kg, 172.72 cm) mb9 19:20 Pain Scale: Adult mb9 20:41 Pain Scale: Adult tm6 21:35 Pain Scale: Adult tm6 23:11 Pain Scale: Adult tm6 ED Course: 19:16 Patient arrived in ED. gm2 19:16 Dale Yost MD is Attending Physician. sp4 19:21 Triage completed. mb9 19:22 Arm band placed on. mb9 20:41 Patient has correct armband on for positive identification. Bed in low position. Call tm6 light in reach. Side rails up X 1. Side rails up X2. Provided Education on: plan of care. Client placed on continuous cardiac and pulse oximetry monitoring. NIBP monitoring applied. indian nanny on. Door closed. Noise minimized. Lights dimmed. Warm blanket given. 20:41 No provider procedures requiring assistance completed. Inserted saline lock: 20 gauge tm6 in right forearm, using aseptic technique. 21:44 CT Abd/Pelvis - IV Contrast Only In Process Unspecified. EDMS 23:13 IV discontinued, intact, bleeding controlled, No redness/swelling at site. Pressure tm6 dressing applied. Administered Medications: 20:44 Drug: NS 0.9% IV 1000 ml IV at 1 bolus Per protocol; 1000 mL bolus Route: IV; Rate: 1 tm6 bolus; Site: right forearm; 20:44 Drug: metoCLOPramide IVP 10 mg IVP once; over 1 to 2 minutes Route: IVP; Site: right tm6 forearm; 22:49 Follow up: Response: No adverse reaction; Marked relief of symptoms jw7 20:45 Drug: HYDROmorphone IVP 1 mg IVP once Route: IVP; Site: right forearm; tm6 20:45 Drug: Ondansetron IVP 4 mg IVP once; over 2 minutes Route: IVP; Site: right forearm; tm6 22:59 Drug: Acetaminophen-Codeine PO (300 mg-30 mg) 2 tabs PO once; RASS on ADMIN: Combtv4, jw7 Very Agttd3, Agttd2, Rstlss1, AlertClm0, Drwsy-1, Lt Sdtn-2, Mod Sdtn-3, Dp Sdtn-4, UnArsble-5 Route: PO; Medication: 20:41 VIS not applicable for this client. tm6 Outcome: 22:53 Discharge ordered by . [email or web address] 23:12 Discharged to home ambulatory, with family, tm6 23:12 Condition: stable 23:12 Discharge instructions given to patient, Instructed on discharge instructions, follow up and referral plans. medication usage, Demonstrated understanding of instructions, follow-up care, medications, Prescriptions given X 2, 23:13 Patient left the ED. tm6 Signatures: Dispatcher [employer] EDLisa Conrad RN RN jw7 Eden Merida, RN RN mb9 Dale Yost MD MD sp4 Mitchell, Ginger 2 Amira Alves RN RN tm6
--- NOTE | 2023-10-30 22:54 | EDPHYS ---
Physician Documentation [facility] Name: Chris Greer Age: 58 yrs Sex: Female : 1965 Arrival Date: 10/30/2023 Time: 19:12 Bed 2 Private MD: ED Physician Dale Yost HPI: 10/30 19:17 This 58 yrs old Other Female presents to ER via Unassigned with complaints of General sp4 complaint. 19:17 Allergies: Aspirin; Codeine; Morphine; Motrin; PENICILLINS; Sulfa (Sulfonamide sp4 Antibiotics) PMHx: 01:36 acid reflux; depressive disorder; GERD; Hypertension PSHx: 01:36Appendectomy; section; Cholecystectomy; Gastric Bypass; intestional stent; . 22:33 58-year-old female with history of Jacqueline-en-Y gastric bypass, presents with worsening sp4 left upper and lower abdominal pain. Patient was here 09/07/2023 and was discovered to have perforated bowel at the anastomosis site and was transferred to [facility]. See CT report below from 09/07/2023 --IMPRESSION: 1. Postsurgical changes related to a [id number] bypass. 2. There is a small amount of scattered free air within the abdomen including adjacent to the bypassed portion of the stomach as well as in the region of the gastrojejunal anastomosis. 3. There are inflammatory changes including mucosal thickening with mild adjacent stranding involving the bypassed portion of the stomach as well as the gastric pouch near the anastomosis. 4. Small pericardial effusion. 5. Hepatomegaly with diffuse hepatic steatosis. 6. Gallbladder is surgically absent. 7. Small amount of free fluid in the lower pelvis. Electronically signed by: Daljit Sanchez MD 09/07/2023 04:29 AM. Historical: - Allergies: 19:21 Aspirin; mb9 19:21 Codeine; mb9 19:21 Morphine; mb9 19:21 Motrin; mb9 19:21 PENICILLINS; mb9 19:21 Sulfa (Sulfonamide Antibiotics); mb9 - Home Meds: 19:21 Propranolol Oral [Active]; pantoprazole oral [Active]; mb9 - PMHx: 19:21 acid reflux; depressive disorder; GERD; Hypertension; mb9 - PSHx: 19:21 Appendectomy; section; Cholecystectomy; Gastric Bypass; intestional stent; mb9 - Immunization history:: Adult Immunizations up to date. - Social history:: Smoking status: Patient denies any tobacco usage or history of. - Family history:: not pertinent. ROS: 22:45 Constitutional: Negative for fever, chills, and weight loss, Positive abdominal pain sp4 22:45 All other systems are negative, Exam: 22:45 Constitutional: This is a well developed, well nourished patient who is awake, alert, sp4 and in no acute distress. Head/Face: Normocephalic, atraumatic. Eyes: Pupils equal round and reactive to light, extra-ocular motions intact. Lids and lashes normal. Conjunctiva and sclera are not injected. Cornea within normal limits. Periorbital areas with no swelling, redness, or edema. ENT: Nares patent. No nasal discharge, no septal abnormalities noted. Tympanic membranes are normal and external auditory canals are clear. Oropharynx with no redness, swelling, or masses, exudates, or evidence of obstruction, uvula midline. Mucous membranes moist. Neck: Trachea midline, no thyromegaly or masses palpated, and no cervical lymphadenopathy. Supple, full range of motion without nuchal rigidity, or vertebral point tenderness. Chest/axilla: Normal chest wall appearance and motion. Nontender with no deformity. No lesions are appreciated. Cardiovascular: Regular rate and rhythm with a normal S1 and S2. No gallops, murmurs, or rubs. Normal PMI, no JVD. No pulse deficits. Respiratory: Lungs have equal breath sounds bilaterally, clear to auscultation and percussion. No rales, rhonchi or wheezes noted. No increased work of breathing, no retractions or nasal flaring. Abdomen/GI: Soft, with normal bowel sounds. No distension or tympany. No guarding or rebound. Left upper and lower abdominal tenderness on exam , no rebound Back: No spinal tenderness. No costovertebral tenderness. Skin: Warm, dry with normal turgor. Normal color with no rashes, no lesions, and no evidence of cellulitis. MS/ Extremity: Pulses equal, no cyanosis. Neurovascular intact. Full, normal range of motion. Neuro: Awake and alert, GCS 15, oriented to person, place, time, and situation. Cranial nerves II-XII grossly intact. Motor strength 5/5 in all extremities. Sensory grossly intact. Psych: Awake, alert, with orientation to person, place and time. Behavior, mood, and affect are within normal limits Vital Signs: 19:20 BP 135 / 80; Pulse 74; Resp 18; Temp 98.2; Pulse Ox 100% ; Weight 104.33 kg; Height 5 mb9 ft. 8 in. ; Pain 9/10; 20:41 BP 160 / 85; Pulse 66; Resp 15; Pulse Ox 94% ; Pain 9/10; tm6 21:35 BP 173 / 83; Pulse 67; Resp 13; Pulse Ox 94% on R/A; Pain 4/10; tm6 22:41 BP 124 / 70; Pulse 56; Resp 17 S; Pulse Ox 97% on R/A; jw7 23:11 BP 117 / 69; Pulse 59; Resp 16; Pulse Ox 99% on R/A; Pain 3/10; tm6 19:20 Body Mass Index 34.97 (104.33 kg, 172.72 cm) mb9 19:20 Pain Scale: Adult mb9 20:41 Pain Scale: Adult tm6 21:35 Pain Scale: Adult tm6 23:11 Pain Scale: Adult tm6 MDM: 19:28 Patient medically screened. sp4 22:33 ED course: CT today - EXAM DESCRIPTION: CT - Abdomen Pelvis W Contrast - 10/30/2023 9:43 sp4 pm CLINICAL HISTORY: Abdominal pain COMPARISON: 2018 TECHNIQUE: Computed axial tomography of the abdomen pelvis was obtained. 100 cc Isovue-300 was administered intravenously. Oral contrast was not requested which limits evaluation of bowel and appendix All CT scans are performed using dose optimization technique as appropriate and may include automated exposure control or mA/KV adjustment according to patient size. FINDINGS: Fatty liver. Mild thyromegaly Gastric bypass Spleen, pancreas, adrenal and right kidney appear unremarkable. Left renal calculi. Largest 7 millimeters. No hydronephrosis. No evidence of diverticulitis. No adnexal mass. 4.7 centimeter area stranding left aspect of the greater omentum Chronic compression deformity T12 vertebral body IMPRESSION: 4.7 centimeter area stranding left aspect of the greater omentum may represent an early infarct. Nonobstructing left renal calculi. 22:45 Differential Diagnosis altered mental status, sepsis, flu. Data reviewed: vital signs, sp4 nurses notes, lab test result(s), drug level(s), electrolytes. 22:51 Consideration of Admission/Observation Escalation of care including sp4 admission/observation considered. ED course: Patient has signs of greater omental infarct on the left side corresponding to the patient's area of pain. Will advise patient to see her bariatric surgeon Dr. Kirby for further evaluation on outpatient basis. Prescribe Tylenol # 4 . Patient states she is not allergic to codeine. And Reglan as needed for nausea. . 10/30 19:34 Order name: CBC with Diff; Complete Time: 22:39 sp4 10/30 19:34 Order name: CMP; Complete Time: 22:39 sp4 10/30 19:34 Order name: Lipase; Complete Time: 22:39 sp4 10/30 19:34 Order name: Urinalysis W/Microscopic; Complete Time: 22:39 sp4 10/30 19:35 Order name: CRP; Complete Time: 22:39 sp4 10/30 19:35 Order name: Lactate w/ 2H reflex if indic.; Complete Time: 22:39 sp4 10/30 19:34 Order name: CT Abd/Pelvis - IV Contrast Only; Complete Time: 22:39 sp4 10/30 19:34 Order name: IV Saline Lock; Complete Time: 20:44 sp4 10/30 19:34 Order name: Labs collected and sent; Complete Time: 20:44 sp4 Administered Medications: 20:44 Drug: NS 0.9% IV 1000 ml IV at 1 bolus Per protocol; 1000 mL bolus Route: IV; Rate: 1 tm6 bolus; Site: right forearm; 20:44 Drug: metoCLOPramide IVP 10 mg IVP once; over 1 to 2 minutes Route: IVP; Site: right tm6 forearm; 22:49 Follow up: Response: No adverse reaction; Marked relief of symptoms jw7 20:45 Drug: HYDROmorphone IVP 1 mg IVP once Route: IVP; Site: right forearm; tm6 20:45 Drug: Ondansetron IVP 4 mg IVP once; over 2 minutes Route: IVP; Site: right forearm; tm6 22:59 Drug: Acetaminophen-Codeine PO (300 mg-30 mg) 2 tabs PO once; RASS on ADMIN: Combtv4, jw7 Very Agttd3, Agttd2, Rstlss1, AlertClm0, Drwsy-1, Lt Sdtn-2, Mod Sdtn-3, Dp Sdtn-4, UnArsble-5 Route: PO; Disposition Summary: 10/30/23 22:53 Discharge Ordered Notes: Location: Home sp4 Problem: new sp4 Symptoms: have improved sp4 Condition: Fair sp4 Diagnosis - 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, left upper abdominal pain sp4 Followup: sp4 - With: Private Physician - When: 7 - 10 days - Reason: Recheck today's complaints Discharge Instructions: - Discharge Summary Sheet sp4 - Abdominal Pain, Adult, Wyxt-ve-Vlys sp4 Forms: - Patient Portal Instructions sp4 - School release form tm6 - Family Work Release tm6 Prescriptions: - acetaminophen-codeine 300-60 mg Oral tablet - take 1 tablet ORAL route every 8 hours PRN pain; 20 tablet; Refills: 0, Product sp4 Selection Permitted - Reglan 10 mg Oral tablet - take 1 tablet ORAL route every 6 hours PRN nausea; 30 tablet; Refills: 0, sp4 Product Selection Permitted Signatures: Dispatcher [employer] Lisa Richards RN RN jw7 Eden Merida RN RN mb9 Dale Yost MD MD sp4 Amira Alves RN RN tm6
[2023-10-31 04:52] VITALS: TEMP 98.2
[2023-10-31 05:07] VITALS: BP 117/69; O2SAT 99
== END ==
LOC: ER 19:12
DX: K55.049 Acute infarction of large intestine, extent unspecified (principal); I10 Essential (primary) hypertension; Z88.0 Allergy status to penicillin; Z88.5 Allergy status to narcotic agent; Z88.6 Allergy status to analgesic agent
CPT/HCPCS: 36415; 74177; 80053; 81001; 83605; 83690; 85025; 86140; J1170; J2405; J2765; J7030; Q9967